=== PATIENT | female | born 1965 | race Caucasian/White ===

== ENCOUNTER 2016-08-20 10:05 | Emergency (ER) | payer OTHER ==
[2016-08-20 10:18] VITALS: BP 123/78
--- NOTE | 2016-08-20 10:30 | UC ---
Skin Complaint HPI - HPI Summary HPI Summary: In grown hair in left eye brow---noticed it was tender and swollen on Sunday-- around eye is swollen and left anterior auricle gland swollen - History of Current Complaint Chief Complaint: UCEye Time Seen by Provider: 08/20/16 10:13 Stated Complaint: EYE ISSUE Hx Obtained From: Patient ?: No Onset/Duration: Sudden Onset, Lasting Days - 2, Still Present Timing: Constant Onset Severity: Mild Pain Intensity: 4 Pain Scale Used: 0-10 Numeric Location: Discrete - left eye brow Character: Raised, Painful Aggravating: Touch Alleviating: Nothing Associated Signs & Symptoms: Positive: Negative - Allergy/Home Medications Allergies/Adverse Reactions: Allergies Allergy/AdvReac Type Severity Reaction Status Date / Time No Known Allergies Allergy Verified 08/20/16 10:18 Home Medications: Home Medications Budesonide/Formote 160/4.5(NF) [Symbicort 160/4.5 (NF)] 1 PO DAILY 08/20/16 [ History] Review of Systems Constitutional: Negative Skin: Negative Eyes: Negative ENT: Negative Respiratory: Negative Cardiovascular: Negative Gastrointestinal: Negative Genitourinary: Negative Motor: Negative Neurovascular: Negative Musculoskeletal: Negative Neurological: Negative Psychological: Negative All Other Systems Reviewed And Are Negative: Yes PMH/Surg Hx/FS Hx/Imm Hx Previously Healthy: No Endocrine History Of: Reports: Thyroid Disease Denies: Diabetes Cardiovascular History Of: Denies: Cardiac Disorders, Hypertension Respiratory History Of: Reports: Asthma Denies: COPD GI/ History Of: Denies: Ulcer - Surgical History Surgical History: Yes Surgery Procedure, Year, and Place: fixed "flap" for acid reflux 1999. 2000 shoulder repair. 2 c-sections - Family History Known Family History: Positive: None Family History: denies cardiovascular issues in family lineage - Social History Occupation: Employed Full-time Lives: With Family Alcohol Use: None Substance Use Type: None Smoking Status (MU): Never Smoked Tobacco Physical Exam Triage Information Reviewed: Yes Appearance: Well-Appearing, No Pain Distress, Well-Nourished Vital Signs: Initial Vital Signs Temp 98.6 F 08/20/16 10:13 Pulse 76 08/20/16 10:13 Resp 16 08/20/16 10:13 BP 123/78 08/20/16 10:13 Pulse Ox 95 08/20/16 10:13 Vital Signs Reviewed: Yes Eye Exam: Normal Eyes: Positive: Conjunctiva Clear ENT Exam: Normal ENT: Positive: Normal ENT inspection, Hearing grossly normal, Pharynx normal, TMs normal. Negative: Nasal congestion, Nasal drainage Dental Exam: Normal Neck exam: Normal Neck: Positive: Supple, Nontender, Enlarged Nodes @ - left anterior auricle Respiratory Exam: Normal Respiratory: Positive: Chest non-tender, Lungs clear, Normal breath sounds, No respiratory distress, No accessory muscle use Cardiovascular Exam: Normal Cardiovascular: Positive: RRR, No Murmur, Pulses Normal, Brisk Capillary Refill Musculoskeletal Exam: Normal Musculoskeletal: Positive: Strength Intact, ROM Intact, No Edema Neurological Exam: Normal Neurological: Positive: Alert, Muscle Tone Normal Psychological Exam: Normal Skin Exam: Other Skin: Positive: Other - dime size firm abscess in left eye brow Course/Dx - Course Course Of Treatment: bactrim, heat, tylenol, ibuprofen do not pick or poke at abscess for with pcp in 3-5 days - Differential Diagnoses - Skin Complaint Differential Diagnoses: Abscess, Cellulitis - Diagnoses Provider Diagnoses: Abscess left eye brow Discharge - Discharge Plan Condition: Stable Disposition: HOME Prescriptions: Sulfamethox/Trimethoprim DS* [Bactrim DS 800/160 TAB*] 1 tab PO BID #20 tab Patient Education Materials: Ibuprofen (By mouth), Abscess (ED), Heat Pack Application (ED) Referrals: Yanni Shahid MD [Primary Care Provider] - 3 Days
== END 2016-08-20 10:38 | disposition home or self-care (01) ==
LOC: UCEAST 10:05
DX: L03.211 Cellulitis of face (principal); E07.9 Disorder of thyroid, unspecified
CPT/HCPCS: 99212; G0463

== ENCOUNTER 2016-08-22 15:36 | Emergency (ER) | payer OTHER ==
[2016-08-22] MEDS ORDERED: Ketorolac INJ* 30 MG/ML 1 ML VIAL IV ONE (17:45)
[2016-08-22] MEDS ORDERED: NS 0.9% 1000 ML* 1,000 ML IV ONE (17:45)
[2016-08-22] MEDS ORDERED: Clindamycin 900 MG IVPREMIX(* 900 MG/50 ML SDV IV ONE (18:00)
--- NOTE | 2016-08-22 18:01 | ED ---
Throat Pain/Nasal Congestion - HPI Summary HPI Summary: Patient presents with left eye pain and swelling that began 5 days ago when she "popped" what she thought was a pimple just below her right eyebrow. The area became swollen and painful so she went to [facility] two days later where she was told she has an abscess and was placed on antibiotics and told to follow-up at the ED if it does not improve for an I&D and IV antibiotics. The area has continued to be swollen and painful, but her mother thinks it has actually improved some. She denies fever, chills, pain with eye movement or NICHOLSON. She does have left sided face pain and mild swelling. She is taking Bactrim and using over the counter medication for pain. - History of Current Complaint Chief Complaint: EDEyeProblem Time Seen by Provider: 08/22/16 17:34 Hx Obtained From: Patient, Family/Equipment Inspector Onset/Duration: Gradual Onset Severity: Moderate Associated Signs And Symptoms: Positive: Negative Cough: None - Allergies/Home Medications Allergies/Adverse Reactions: Allergies Allergy/AdvReac Type Severity Reaction Status Date / Time No Known Allergies Allergy Verified 08/20/16 10:18 PMH/Surg Hx/FS Hx/Imm Hx Endocrine/Hematology History: Reports: Hx Thyroid Disease Denies: Hx Diabetes Cardiovascular History: Denies: Hx Hypertension Respiratory History: Reports: Hx Asthma Denies: Hx Chronic Obstructive Pulmonary Disease (COPD) GI History: Denies: Hx Ulcer - Cancer History Hx Radiation Therapy: No - Surgical History Surgery Procedure, Year, and Place: fixed "flap" for acid reflux 1999. 2000 shoulder repair. 2 c-sections Infectious Disease History: No Infectious Disease History: Denies: Hx Hepatitis, Hx Human Immunodeficiency Virus (HIV), History Other Infectious Disease, Traveled Outside the [place] in Last 30 Days - Family History Known Family History: Positive: None Family History: denies cardiovascular issues in family lineage - Social History Occupation: Employed Full-time Lives: With Family Alcohol Use: None Substance Use Type: Reports: None Smoking Status (MU): Never Smoked Tobacco Review of Systems Negative: Fever, Chills Positive: Erythema - mild circumferentially left eye. Negative: Photophobia, Blurred Vision, Diplopia, Drainage Negative: Sore Throat, Ear Ache Positive: Edema - left eye Negative: Bruising Negative: Headache All Other Systems Reviewed And Are Negative: Yes Physical Exam Triage Information Reviewed: Yes Vital Signs On Initial Exam: Initial Vitals Temp Pulse Resp BP Pulse Ox 97.7 F 76 20 144/82 99 08/22/16 15:38 08/22/16 15:38 08/22/16 15:38 08/22/16 15:38 08/22/16 15:38 Vital Signs Reviewed: Yes Appearance: Positive: Well-Appearing, Well-Nourished, Pain Distress Skin: Positive: Warm, Skin Color Reflects Adequate Perfusion, Dry, Tender, Soft , Erythema @ - mild circumferential to left eye. Area of fluid collection inferior to eye that is not tense. Head/Face: Positive: Normal Head/Face Inspection Eyes: Positive: EOMI, IRIS, Conjunctiva Clear ENT: Positive: Hearing grossly normal, Pharynx normal, TMs normal Neck: Positive: Supple, Tenderness @ - left auricular and submandibular, Enlarged Nodes @ - left auricular and submandibular Respiratory/Lung Sounds: Positive: Clear to Auscultation, Breath Sounds Present Cardiovascular: Positive: RRR Musculoskeletal: Positive: Strength/ROM Intact Neurological: Positive: Sensory/Motor Intact, Alert, Oriented to Person Place, Time, NV Bundle Intact Distally Psychiatric: Positive: Affect/Mood Appropriate AVPU Assessment: Alert - Juanjose Coma Scale Coma Scale Total: 15 Diagnostics - Vital Signs Vital Signs Temp Pulse Resp BP Pulse Ox 08/22/16 15:38 97.7 F 76 20 144/82 99 - Laboratory Result Diagrams: 08/22/16 18:10 08/22/16 18:10 Lab Statement: Any lab studies that have been ordered have been reviewed, and results considered in the medical decision making process. - CT No standard instances CT Interpretation: No Acute Changes CT Interpretation Completed By: Radiologist - 8mm non-specific nodule parotid gland EENT Course/Dx - Differential Diagnoses Differential Diagnoses: Cellulitis, Conjunctivitis, Periorbital/Orbital Cellulitis - Diagnoses Provider Diagnoses: Periorbital cellulitis of left eye Discharge - Discharge Plan Condition: Stable Disposition: HOME Prescriptions: Clindamycin Cap(NF) [Cleocin 300 mg Cap(NF)] 300 mg PO Q6H #28 cap Patient Education Materials: Periorbital Cellulitis in Adults (ED) Referrals: Yanni Shahid MD [Primary Care Provider] - Additional Instructions: Please take the antibiotics prescribed until they are completely gone. Follow- up with your primary care provider in 1-2 days for re-evaluation to insure you are improving. You received Toradol today, which is a high dose NSAID, so begin using ibuprofen 600mg three times daily with meals tomorrow evening for the next 3-5 days to decrease swelling and pain to avoid damage to your kidneys. Return to the emergency department if symptoms worsen.
[2016-08-22 18:21] LABS: Hematocrit 40 % (35-47); Hemoglobin 13.1 g/dl (12.0-16.0); Mean Corpuscular HGB Conc 33 g/dl (31-36); Mean Corpuscular Hemoglobin 28 pg (27-31); Mean Corpuscular Volume 86 fL (80-97); Mean Platelet Volume 7 um3 (7.4-10.4); Red Blood Count 4.62 10^6/ul (4.0-5.4); Red Cell Distribution Width 14 % (10.5-15); White Blood Count 7.1 10^3/ul (3.5-10.8)
[2016-08-22 18:36] LABS: Albumin 4.7 g/dL (3.2-5.2); BUN/Creatinine Ratio 17.5 (8-20); C Reactive Protein 6.14 mg/L (< 5.00); Calcium 9.7 mg/dL (8.6-10.3); EGFR African American 60.9 (>60); EGFR Non-African American 47.4 (>60); Globulin 3.6 g/dL (2-4); Potassium 4.1 mmol/L (3.5-5.0); Total Bilirubin 0.4 mg/dL (0.2-1.0); Total Protein 8.3 g/dL (6.4-8.9)
[2016-08-22] MEDS ORDERED: Iodixanol* (CONTRAST) 320 MG/ML 100 ML SDV IV ONE (18:38)
--- NOTE | 2016-08-22 19:32 | RAD ---
INDICATION: Left orbit and face swelling and pain. COMPARISON: None TECHNIQUE: Contiguous axial sections of the orbits and nasal sinuses were obtained before and after the intravenous injection of 75 mL of Visipaque 320. Images were reconstructed in the coronal and sagittal planes. FINDINGS: There is mild subcutaneous hyperattenuation overlying the left orbit and extending to the upper portion of the maxilla. This same region exhibits mild enhancement and the postcontrast images. There is no drainable fluid collection. Bilaterally the post septal fat of the orbits exhibits normal attenuation. The extraocular muscles appear normal in shape and size. The globes are symmetric and in normal position. The optic nerves are symmetric in size. In the left parotid gland there is an 8 mm nodule exhibiting mild enhancement after contrast administration (image 20 of 27). No fracture is seen. There is mild mucosal thickening of the bilateral maxillary sinuses. The sphenoid sinuses, ethmoid air cells and frontal sinuses are adequately aerated. IMPRESSION: 1. Left-sided superficial soft tissue swelling as described above without CT evidence of post septal orbital cellulitis or drainable fluid collection. 2. The mildly enhancing 8 mm nodule in the left parotid gland is a nonspecific finding with a differential that ranges from benign to malignant etiologies. There is no prior relevant imaging available to comment on chronicity.
[2016-08-22] MEDS ORDERED: Clindamycin CAP* 150 MG PO ONE (19:42)
[2016-08-22 20:16] VITALS: BP 122/68
== END 2016-08-22 20:17 | disposition home or self-care (01) ==
LOC: ED 15:36
DX: L03.213 Periorbital cellulitis (principal); H57.12 Ocular pain, left eye
CPT/HCPCS: 36415; 70488; 80053; 85025; 86140; 96374; 99282; A9270-GY; J1885; Q9967

== ENCOUNTER 2016-10-12 06:00 | Inpatient (IN) | payer OTHER ==
--- NOTE | 2016-10-02 10:55 | HP ---
HISTORY AND PHYSICAL: DATE OF OFFICE VISIT: 10/02/16 DATE OF SURGERY: 10/12/16 SURGEON: Tamar Law MD. (DICTATED BY TRESA NAVARRO) PROCEDURE: Left total knee arthroplasty. CHIEF COMPLAINT: Left knee pain. HISTORY OF PRESENT ILLNESS: Ms. Randhawa is a 51-year-old female with complaints of left knee pain secondary to advanced osteoarthritis. She has failed conservative management and has elected to proceed with a left total knee arthroplasty, which is scheduled for 10/12/[address] Law. PAST MEDICAL HISTORY: Asthma, hypothyroidism, anxiety, depression, and acid reflux. PAST SURGICAL HISTORY: x2, right rotator cuff repair, and an unknown upper GI surgery. CURRENT MEDICATIONS: 1. Citalopram 20 mg once a day. 2. Levothyroxine 112 mcg daily. 3. Ventolin HFA 90 mcg. 4. Symbicort 160/4.5 mcg. 5. Montelukast 10 mg once a day. 6. Cetirizine 10 mg once a day. ALLERGIES: CLINDAMYCIN. FAMILY HISTORY: Family history of stroke, DVT, and heart disease. SOCIAL HISTORY: She is a 51-year-old female. She lives with her . 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 She does not smoke, use drugs or drink alcohol. REVIEW OF SYSTEMS: A complete 14-point review of systems was reviewed with the patient and it was positive for thyroid disease, but negative for anesthesia problems, history of DVT, bleeding disorders, hepatitis C or HIV. PHYSICAL EXAMINATION GENERAL: She is well developed, well nourished, in no acute distress. VITAL SIGNS: She stands 5 feet 5 inches tall, weighs 190 pounds. Her blood pressure is 121/80, her heart rate is 73. HEENT: Normocephalic, atraumatic. NECK: Supple. No palpable lymph nodes. Trachea midline. PULMONARY: Lungs are clear to auscultation bilaterally. CARDIO: Regular rate and rhythm. Strong S1, S2. ABDOMEN: Soft, nontender, nondistended. MUSCULOSKELETAL: Left lower extremity skin is intact. There is open wounds or abrasions. She has [id number] joint effusion. Tenderness over the mediolateral joint line. She has full range of motion of her left knee. Her lower extremities muscle group strengths are intact at 5/5. She has intact sensation and 2+ dorsalis pedis pulses. NEUROLOGIC: She is alert and oriented x3. Cranial nerves II through XII are intact. ASSESSMENT AND PLAN: Ms. Randhawa is a 51-year-old female with complaints of left knee pain secondary to advanced osteoarthritis. She has failed conservative management and has elected to proceed with a left total knee arthroplasty which is scheduled for 10/12/[address] Law discussed the risks and benefits of the surgery at today's visit and all of her questions were answered. Percocet, Colace, and Coumadin were sent to her pharmacy for postoperative DVT prophylaxis and pain control. She will see Dr. Law back in 2 weeks after the surgery. TRESA NAVARRO [id number]/[facility] #: [id number] MTDD
[~2016-10-12 06:00] MED LIST: Famotidine IV* 10 MG/ML 2 ML (20 mg) IV ONE
[2016-10-12] MEDS ORDERED: Buffered Lidocaine 1% SYRIN* 5 ML/SYR SYRINGE ONE (06:07)
[2016-10-12] MEDS ORDERED: Famotidine IV* 10 MG/ML 2 ML (20 mg) ONE (06:07)
[2016-10-12] MEDS ORDERED: ceFAZolin 2 GM PREMIX(*) 2 GM/50 ML BAG IVPB ONE (06:07)
[2016-10-12] MEDS ORDERED: Midazolam* 1 MG/ML 5 ML VIAL (5 MG) ONE (07:33)
[2016-10-12] MEDS ORDERED: Morphine PF AMP (0.5MG/ML)* 5 MG/10 ML AMP ONE (07:35)
[2016-10-12] MEDS ORDERED: fentaNYL* 50 MCG/ML 2 ML VIAL (100 MCG VIAL) ONE (07:55)
[2016-10-12] MEDS ORDERED: KETAMINE HCL* 50 MG/ML 10 ML VIAL ONE (08:09)
[2016-10-12] MEDS ORDERED: Lidocaine 2% PF * 5 ML VIAL ONE (08:48)
[2016-10-12] MEDS ORDERED: Ketorolac INJ* 30 MG/ML 1 ML VIAL ONE (08:48)
[2016-10-12] MEDS ORDERED: EPHEDrine (Pressors)* 50 MG/ML VIAL ONE (08:48)
[2016-10-12] MEDS ORDERED: Ondansetron INJ* 2 MG/ML VIAL ONE (08:48)
[2016-10-12] MEDS ORDERED: Propofol* 10 MG/ML 20 ML BTL IV PUSH ONE ×2 (08:48→09:21)
[2016-10-12] MEDS ORDERED: DiMENhydriNATE IV* 50 MG/ML VIAL IV PUSH PRN ×2 (10:21→10:28)
[2016-10-12] MEDS ORDERED: oxyCODONE TAB* 5 MG TAB PO PRN ×2 (10:21→10:22)
[2016-10-12] MEDS ORDERED: Acetaminophen TAB* 325 MG PO PRN ×2 (10:21→10:22)
[2016-10-12] MEDS ORDERED: Naloxone* 0.4 MG/ML 1 ML VIAL IV PRN (10:22)
[2016-10-12] MEDS ORDERED: Ondansetron INJ* 2 MG/ML VIAL IV PRN (10:22)
[2016-10-12] MEDS ORDERED: Morphine INJ* 4 MG/ML 1 ML SYRINGE IV PRN (10:22)
[2016-10-12] MEDS ORDERED: oxyCODONE/Acetamin 5/325 MG* TAB PO PRN ×2 (10:22)
[2016-10-12] MEDS ORDERED: diPHENhydraMINE IV* 50 MG/ML 1 ml VIAL (BENADRYL) IV PRN (10:22)
[2016-10-12] MEDS ORDERED: Nalbuphine* 20 MG/ML 1 ML VIAL IV PRN (10:22)
--- NOTE | 2016-10-12 11:13 | RAD ---
Indication: Immediate postop exam following LEFT total knee replacement. Comparison: No relevant prior exams available on the [facility] PACS for comparison. Technique: Portable AP and cross table lateral views LEFT knee. Report: Status post total knee replacement. Anterior surgical drain in place. Post-op fluid and gas is seen in the joint space and anterior subcutaneous tissues. Alignment is anatomic. No periprosthetic fracture evident. IMPRESSION: Unremarkable immediate postoperative appearance following LEFT knee replacement.
[2016-10-12] MEDS: Ibuprofen TAB* 600 MG PO SCH ×3 (16:09→23:25)
[2016-10-12] MEDS: ceFAZolin VIAL(*) 1 GM in NS 0.9% 50 ML* 50 ML IVPB SCH ×2 (16:10→23:25)
[2016-10-12] MEDS ORDERED: Warfarin TAB(*) 6 MG PO ONE (17:00)
[2016-10-12] MEDS ORDERED: Levothyroxine TAB* 112 MCG TAB PO SCH (18:00)
[2016-10-12] MEDS ORDERED: Citalopram TAB* 20 MG PO SCH (18:00)
[2016-10-12] MEDS ORDERED: Cetirizine* 10 MG TAB PO SCH (18:00)
[2016-10-12] MEDS: oxyCODONE/Acetamin 5/325 MG* TAB PO PRN ×3 (19:10→23:24)
[2016-10-12] MEDS: Mometasone/Formoter 200/5 MDI INH SCH (21:15)
[2016-10-12] MEDS: Cetirizine* 10 MG TAB PO SCH (21:15)
[2016-10-12] MEDS: Citalopram TAB* 20 MG PO SCH (21:15)
[2016-10-12] MEDS: Montelukast Sodium TAB* 10 MG PO SCH (21:15)
[2016-10-12] MEDS: Docusate CAP* 100 MG PO SCH (21:16)
[2016-10-12] MEDS: Magnesium Hydroxide LIQ* 30 ML UDC PO SCH (21:16)
[2016-10-12] MEDS: Morphine INJ* 4 MG/ML 1 ML SYRINGE IV PRN (23:25)
[2016-10-13] MEDS ORDERED: oxyCODONE TAB* 5 MG TAB PO PRN
[2016-10-13] MEDS ORDERED: diPHENhydraMINE IV* 50 MG/ML 1 ml VIAL (BENADRYL) IV PRN
[2016-10-13] MEDS ORDERED: oxyCODONE/Acetamin 5/325 MG* TAB PO ONE (00:30)
[2016-10-13] MEDS ORDERED: HYDROmorphone* 1 MG/ML 1 ML SYR ONE (00:36)
[2016-10-13] MEDS: oxyCODONE/Acetamin 5/325 MG* TAB PO PRN ×5 (00:39→21:35)
[2016-10-13] MEDS: HYDROmorphone* 1 MG/ML 1 ML SYR IV ONE ×2 (01:00→01:24)
--- NOTE | 2016-10-13 02:38 | OP ---
OPERATIVE NOTE: DATE OF OPERATION: 10/12/16 - inpatient, room #349-02 DATE OF : 65 SURGEON: Tamar Law MD VP MARKETING: TRESA Ochoa Ms. Villegas did help throughout the procedure with preparation of the leg, wound retraction, manipulation of the leg, and wound closure. ANESTHESIOLOGIST: Dr. Wilson. ANESTHESIA: Spinal with adductor nerve block. PRE-OP DIAGNOSIS: Severe degenerative osteoarthritis of the left knee joint. POST-OP DIAGNOSIS: Severe degenerative osteoarthritis of the left knee joint. OPERATIVE PROCEDURE: Left total knee arthroplasty. COMPLICATIONS: None. ESTIMATED BLOOD LOSS: 200 cc. TOURNIQUET TIME: 48 minutes. SPECIMEN: Bone and cartilage from the left knee joint sent to pathology. HARDWARE: This is a [employer] cemented total knee hardware. Two packages of Simplex bone cement. For the femur, a size 4 narrow left Oxinium femoral component. For the tibia, size 3 tibial base plate. Insert is a 15 mm size 3-4 posterior stabilized articular insert. For the patella, a 32 mm 3-peg all poly patella. INDICATIONS: Ms. Randhawa is a 51-year-old female with years of increasingly severe left knee pain. She failed conservative treatment with anti- inflammatories, pain medications, intraarticular injections, physical therapy, and brace wear. She had decreased quality of life and constant pain due to her knee pain. She elected to undergo left total knee arthroplasty. Informed consent was obtained from the patient. She understood the risks of the procedure included, but were not limited to bleeding, infection, damage to nearby structures, continued pain, need for further surgery, intraoperative fracture, nerve palsy, hardware failure or loosening, knee stiffness, loss of motion, stroke, heart attack, blood clot, and . She wished to proceed. Specific to this patient, she understood her young age may lead to early loosening of the implant. She wished to proceed. INTRAOPERATIVE FINDINGS: Intraoperatively, the patient was noted to have severe end-stage arthritis with significant bone loss along the medial tibial plateau, significant loss of cartilage with subchondral sclerosis in the medial and patellofemoral compartment. DESCRIPTION OF PROCEDURE: Ms. Randhawa was identified in the preanesthesia unit. Her left lower extremity was marked as the correct operative side. Informed consent was signed and placed in the chart. The patient was taken to the operating room and placed under spinal anesthesia with an adductor nerve block. A Edwards catheter was placed. The tourniquet was placed on the left thigh. Left lower extremity was prepped and draped in the usual sterile fashion. Preop time-out was made to correctly identify the patient's side and site. Appropriate perioperative antibiotics were given within 1 hour of incision. Tourniquet was inflated and total tourniquet time for this procedure was 48 minutes. A 12 cm midline incision was made with a 10 blade and carried down to the extensor mechanism. A new 10 blade was used to make a standard medial parapatellar arthrotomy. The patella was subluxed laterally. Electrocautery was used to subperiosteally elevate the soft tissue off the superomedial tibia. Osteophytes were carefully removed. The knee was flexed up. The anterior horn of the lateral meniscus and ACL were sharply released. Full thickness loss of cartilage was noted in the patellofemoral and medial compartment. A drill was used to enter the distal femur. Intramedullary distal femoral cutting guide was pinned on the distal femur. Oscillating saw was used to make the distal femur cuts. External rotation guide was placed on the distal femur and the femur was sized to a size 4. Size 4 multi-cutting jig was pinned on the distal femur. Oscillating saw was used to make the appropriate 4 chamfer cuts. PCL was completely released. The tibia was subluxed anteriorly. Extramedullary tibial cutting guide was pinned on the proximal tibia. Oscillating saw was used to make the proximal tibial cut perpendicular to the mechanical axis of the tibia. Tibial bone was carefully removed. The knee was brought out into full extension. There was good medial and lateral ligamentous balancing. The spacer block had good fit. Flexion and extension gaps were well balanced. Lamina spreaders were placed both medially and laterally. Any remaining meniscus was carefully removed with electrocautery. Posterior osteophytes were removed using a curved osteotome. Size 4 narrow left femoral trial was impacted onto the distal femur. This trial had good fit. The box for the posterior stabilized implant was prepared using a reamer and box cut osteotome. Size 3 tibial tray trial and a 9 mm insert trial was placed. The knee was taken through a range of motion. There were some looseness in both flexion and extension. Therefore, a 13 mm insert trial was placed. There was full extension to 130 degrees of flexion. Good medial and lateral stability. The patella was everted. 9 mm of patellar bone and cartilage were carefully removed using an oscillating saw. The patella was sized to a size 32. Three- peg holes were drilled through the size 32 guide. Trial 32 patella was placed and the knee was taken through a range of motion. There was satisfactory patellofemoral tracking. All trials were carefully removed. The tibia was subluxed anteriorly and sized to a size 3. Proximal tibia was prepared using a size 3 keel punch. All bony cut surfaces were copiously irrigated with sterile saline and dried. The final implants were cemented into place, starting with the tibia, followed by the femur, and last the patella. A 15-mm insert trial was placed and the knee was brought out into full extension. The knee was copiously irrigated with sterile saline. Once the cement had fully cured, the insert trial was removed. Any excess cement was carefully removed from around the joints. Electrocautery was used to obtain meticulous hemostasis. The final insert chosen was a 15 mm posterior stabilized articular insert. This was locked into position on the tibial tray without difficulty. Stability of the insert was checked and rechecked and noted to be stable. Final range of motion with full extension to 130 degrees of flexion with good patellofemoral tracking. The knee was copiously irrigated with sterile saline. The extensor mechanism was closed using interrupted #1 Vicryls over a medium Hemovac drain. The rest of the incisions was closed in a layered fashion using 0 and 2-0 Vicryl's. The skin was closed using running 3-0 nylon suture. Sterile Xeroform, 4x4s, and Webril were used to cover the incision. Master wrap and cold pack were placed over this. The patient's anesthesia was reversed without difficulty. She was taken to the PACU in stable condition. Intended weightbearing will be weightbearing as tolerated. Intended DVT prophylaxis will be Coumadin with a Lovenox bridge. [id number]/[facility] #: [id number] ANICETO
[2016-10-13] MEDS: Morphine INJ* 4 MG/ML 1 ML SYRINGE IV PRN ×2 (03:45→09:38)
[2016-10-13] MEDS: Ibuprofen TAB* 600 MG PO SCH ×2 (05:23→09:49)
[2016-10-13] MEDS: Levothyroxine TAB* 112 MCG TAB PO SCH (05:23)
[2016-10-13 06:57] LABS: Hematocrit 33 % (35-47); Hemoglobin 10.9 g/dl (12.0-16.0)
[2016-10-13] MEDS ORDERED: Ondansetron INJ* 2 MG/ML VIAL IV PRN (07:01)
[2016-10-13 07:03] LABS: BUN/Creatinine Ratio 12.4 (8-20); Calcium 8.8 mg/dL (8.6-10.3); EGFR Non-African American 66.9 (>60); Potassium 4.5 mmol/L (3.5-5.0)
[2016-10-13] MEDS: Magnesium Hydroxide LIQ* 30 ML UDC PO SCH ×2 (08:05→21:35)
[2016-10-13] MEDS: Docusate CAP* 100 MG PO SCH ×2 (08:05→21:34)
[2016-10-13] MEDS: Mometasone/Formoter 200/5 MDI INH SCH ×2 (08:05→20:19)
[2016-10-13] MEDS: Vitamin THERAPEUTIC TAB PO SCH (08:05)
[2016-10-13] MEDS: ceFAZolin VIAL(*) 1 GM in NS 0.9% 50 ML* 50 ML IVPB SCH (08:05)
--- NOTE | 2016-10-13 08:13 | PN ---
Progress Note - Progress Note SOAP: Subjective: 51 y/o female s/p L TKA 10/[address] Law. Patient tearful, drain pulled after was caught on bed, non-tender, but concerned about mess made for nursing staff. Pain controlled with pain medication, sitting in chair comfortably, VSS , afebrile. Objective: General- Well appearing, NAD sitting in chair MSK- Drain removed from surgical site, no drainage noted, minimal L LE edema, non-pitting, neg homans b/l, PT 2+ b/l, sensation grossly intact, + PF/ DF b/l Vital Signs Temp 97.8 F 10/13/16 07:10 Pulse 64 10/13/16 07:10 Resp 18 10/13/16 07:36 BP 127/65 10/13/16 07:10 Pulse Ox 99 10/13/16 07:10 Intake & Output 10/12/16 10/13/16 10/13/16 18:59 06:59 18:59 Intake Total 1600 2095 979 Output Total 450 860 Balance 1150 1235 979 Intake: IV Fluids 1600 985 979 LR 1600 985 979 IVPB 50 ABX - CEFAZOLIN 50 Oral 1060 Output: Urine 310 Edwards 450 550 Laboratory Results - last 24 hr 10/13/16 10/13/16 10/13/16 05:37 05:37 05:37 Hgb 10.9 L Hct 33 L INR (Anticoag Therapy) 1.03 Sodium 135 Potassium 4.5 Chloride 103 Carbon Dioxide 31 Anion Gap 1 L BUN 11 Creatinine 0.89 Est GFR ( Amer) 86.0 Est GFR (Non-Af Amer) 66.9 BUN/Creatinine Ratio 12.4 Glucose 112 H Calcium 8.8 Assessment: 51 y/o female s/p L TKA 10/[address] Law. Plan: - DVT prophylaxis- Continue lovenox, coumadin 8mg tonight - Continue PT/ OT - Continue current pain regimen Active Medications Generic Name Dose Route Start Last Admin Trade Name Freq PRN Reason Stop Dose Admin Acetaminophen 650 mg 10/12/16 10:22 Tylenol Tab* PO Q4H PRN TEMP > 100 or PAIN Cetirizine HCl 10 mg 10/12/16 21:00 10/12/16 21:15 Zyrtec* PO 10 mg BEDTIME JADE Administration Protocol Citalopram Hydrobromide 20 mg 10/12/16 21:00 10/12/16 21:15 Celexa Tab* PO 20 mg BEDTIME JADE Administration Diphenhydramine HCl 25 mg 10/13/16 00:00 Benadryl Iv* IV Q6H PRN itching Docusate Sodium 100 mg 10/12/16 21:00 10/13/16 08:05 Colace Cap* PO 100 mg BID JADE Administration Enoxaparin Sodium 40 mg 10/13/16 12:00 Lovenox(*) SUBCUT Q24H JADE Lactated Ringer's 1,000 mls @ 100 mls/hr 10/12/16 11:00 10/13/16 09:40 Lactated Ringers 1000 Ml Bag* IV 100 mls/hr PER RATE JADE Administration Levothyroxine Sodium 112 mcg 10/13/16 06:00 10/13/16 05:23 Synthroid Tab* PO 112 mcg DAILY@0600 JADE Administration Magnesium Hydroxide 30 ml 10/12/16 21:00 10/13/16 08:05 Milk Of Magnesia Liq* PO 30 ml BID JADE Administration Mometasone Furoate/Formoterol Fumar 1 puff 10/12/16 21:00 10/13/16 08:05 Dulera 200/5 Mdi* INH 1 puff BID [facility] Administration Protocol Montelukast Sodium 10 mg 10/12/16 21:00 10/12/16 21:15 Singulair Tab* PO 10 mg BEDTIME JADE Administration Morphine Sulfate 4 mg 10/13/16 00:00 10/13/16 09:38 Morphine Inj (Syringe)* IV 4 mg Q2H PRN Administration PAIN Multivitamins 1 tab 10/13/16 09:00 10/13/16 08:05 Theragran Tab* PO 1 tab DAILY JADE Administration Ondansetron HCl 4 mg 10/13/16 07:01 Zofran Inj* IV Q6H PRN nausea Oxycodone HCl 10 mg 10/13/16 00:00 Roxycodone Tab* PO Q4H PRN PAIN Oxycodone/Acetaminophen 1 tab 10/13/16 00:00 10/13/16 00:39 Percocet 5/325 Tab* PO 1 tab Q4H PRN Administration PAIN Oxycodone/Acetaminophen 2 tab 10/13/16 00:00 10/13/16 07:36 Percocet 5/325 Tab* PO 2 tab Q4H PRN Administration PAIN Pharmacy Profile Note 0 note 10/12/16 17:00 10/12/16 17:37 Coumadin Daily Reminder* FOLLOW UP Not Given 1700 [facility] Warfarin Sodium 8 mg 10/13/16 17:00 Coumadin Tab(*) PO 10/13/16 17:01 ONCE@1700 ONE Protocol
[2016-10-13] MEDS: Enoxaparin(*) 40 MG/0.4 ML SYR SUBCUT SCH (12:12)
[2016-10-13] MEDS ORDERED: Warfarin TAB(*) 4 MG PO ONE (17:00)
[2016-10-13] MEDS: oxyCODONE SR TAB(*) 10 MG TAB.SR PO SCH (21:34)
[2016-10-13] MEDS: Citalopram TAB* 20 MG PO SCH (21:34)
[2016-10-13] MEDS: Montelukast Sodium TAB* 10 MG PO SCH (21:34)
[2016-10-13] MEDS: Cetirizine* 10 MG TAB PO SCH (21:35)
[2016-10-14] MEDS: oxyCODONE/Acetamin 5/325 MG* TAB PO PRN ×4 (01:42→13:55)
[2016-10-14] MEDS: Morphine INJ* 4 MG/ML 1 ML SYRINGE IV PRN (03:51)
[2016-10-14] MEDS: Levothyroxine TAB* 112 MCG TAB PO SCH (06:06)
[2016-10-14 07:22] LABS: Hematocrit 30 % (35-47); Hemoglobin 9.8 g/dl (12.0-16.0); Mean Platelet Volume 7 um3 (7.4-10.4)
--- NOTE | 2016-10-14 07:58 | PN ---
Progress Note - Progress Note SOAP: Subjective: Pt. reports pain with PT. Objective: LLE - dressing changed, inc c/d/i. distally nvi. mod swelling. Vital Signs: Temp Pulse Resp BP Pulse Ox 97.9 F 80 18 113/69 95 10/14/16 03:38 10/14/16 03:38 10/14/16 06:06 10/14/16 03:38 10/14/16 03:38 Laboratory Results - last 24 hr 10/14/16 10/14/16 07:11 07:11 Hgb 9.8 L Hct 30 L Plt Count 186 MPV 7 L INR (Anticoag Therapy) 1.54 H Assessment: 51 yo F pod 2 s/p LTKA Plan: wbat pt/ot give lovenox dose this AM, 4 mg coumadin tonight september d/c to home today following afternoon PT
[2016-10-14] MEDS: Docusate CAP* 100 MG PO SCH (08:49)
[2016-10-14] MEDS: Vitamin THERAPEUTIC TAB PO SCH (08:49)
[2016-10-14] MEDS: Magnesium Hydroxide LIQ* 30 ML UDC PO SCH (08:50)
[2016-10-14] MEDS: oxyCODONE SR TAB(*) 10 MG TAB.SR PO SCH (08:50)
[2016-10-14] MEDS: Mometasone/Formoter 200/5 MDI INH SCH (08:51)
[2016-10-14 11:17] VITALS: BP 103/55
[2016-10-14] MEDS: Enoxaparin(*) 40 MG/0.4 ML SYR SUBCUT SCH (12:42)
[2016-10-14] MEDS ORDERED: Warfarin TAB(*) 4 MG PO ONE (17:00)
== END 2016-10-14 14:40 | disposition home or self-care (01) | DRG 302 ==
LOC: SSU 06:00 → UNDOADMIN 11:29
PROVIDERS: ADMIT Orthopaedic Surgery Adult Reconstructive Orthopaedic Surgery; ATTEND Orthopaedic Surgery Adult Reconstructive Orthopaedic Surgery
PROC: 0SRD0J9 Replacement of Left Knee Joint with Synthetic Substitute, Cemented, Open Approach (ICD-10-PCS; principal; 2016-10-12 07:30)
DX: M17.12 Unilateral primary osteoarthritis, left knee (principal); F32.9 Major depressive disorder, single episode, unspecified; J45.909 Unspecified asthma, uncomplicated; E03.9 Hypothyroidism, unspecified; F41.9 Anxiety disorder, unspecified; K21.9 Gastro-esophageal reflux disease without esophagitis; Z88.8 Allergy status to other drugs, medicaments and biological substances; Z82.49 Family history of ischemic heart disease and other diseases of the circulatory system; Z82.3 Family history of stroke; Z85.038 Personal history of other malignant neoplasm of large intestine; Z82.5 Family history of asthma and other chronic lower respiratory diseases
CPT/HCPCS: 36415; 80048; 85014; 85018; 85049; 85610; 88305; 88311; 94640; A9270-GY; C1776; J0690; J1170; J1650; J1885; J2250; J2270; J2405; J2704; J3010

== ENCOUNTER 2017-10-23 14:47 | Emergency (ER) | payer BC, OTHER ==
[2017-10-23 15:04] VITALS: BP 127/73
--- NOTE | 2017-10-23 15:16 | UC ---
Skin Complaint HPI - HPI Summary HPI Summary: skin around nail for left index finger is tender, red warm and swollen, no streaking full ROM - History of Current Complaint Chief Complaint: UCUpperExtremity Time Seen by Provider: 10/23/17 15:10 Stated Complaint: INFECTED FINGER Hx Obtained From: Patient ?: No Onset/Duration: Sudden Onset, Lasting Weeks - 2 Timing: Constant Pain Intensity: 4 Pain Scale Used: 0-10 Numeric Location: Discrete Character: Swelling, Redness Aggravating Factor(s): Nothing Alleviating Factor(s): Nothing Associated Signs & Symptoms: Positive: Drainage, Tenderness - Allergy/Home Medications Allergies/Adverse Reactions: Allergies Allergy/AdvReac Type Severity Reaction Status Date / Time clindamycin Allergy Severe Rash And Verified 10/23/17 15:24 Itching Review of Systems Constitutional: Negative Skin: Other Eyes: Negative ENT: Negative Respiratory: Negative Cardiovascular: Negative Gastrointestinal: Negative Genitourinary: Negative Motor: Negative Neurovascular: Negative Musculoskeletal: Negative Neurological: Negative Psychological: Negative Is Patient Immunocompromised?: No All Other Systems Reviewed And Are Negative: Yes PMH/Surg Hx/FS Hx/Imm Hx Previously Healthy: No Endocrine History: Hypothyroidism Respiratory History: Asthma Psychological History: Depression - Surgical History Surgical History: Yes Surgery Procedure, Year, and Place: fixed "flap" for acid reflux 1999. 2001 shoulder repair. 2 c-sections. left knee replacement - Family History Known Family History: Positive: None Family History: denies cardiovascular issues in family lineage - Social History Occupation: Employed Full-time Lives: With Family Alcohol Use: None Substance Use Type: None Smoking Status (MU): Never Smoked Tobacco - Immunization History Most Recent Influenza Vaccination: fall 2015 Most Recent Pneumonia Vaccination: never Physical Exam Triage Information Reviewed: Yes Appearance: Well-Appearing, No Pain Distress, Well-Nourished Vital Signs: Initial Vital Signs Temp 98.3 F 10/23/17 14:58 Pulse 72 10/23/17 14:58 Resp 18 10/23/17 14:58 BP 127/73 10/23/17 14:58 Pulse Ox 95 10/23/17 14:58 Vital Signs Reviewed: Yes Eye Exam: Normal Eyes: Positive: Conjunctiva Clear ENT Exam: Normal ENT: Positive: Normal ENT inspection, Hearing grossly normal. Negative: Trismus , Muffled voice, Hoarse voice Dental Exam: Normal Neck exam: Normal Neck: Positive: Supple, Nontender Respiratory Exam: Normal Respiratory: Positive: Chest non-tender, No respiratory distress, No accessory muscle use Cardiovascular Exam: Normal Cardiovascular: Positive: RRR, Pulses Normal, Brisk Capillary Refill Musculoskeletal Exam: Normal Musculoskeletal: Positive: Strength Intact, ROM Intact, No Edema Neurological Exam: Normal Neurological: Positive: Alert, Muscle Tone Normal Psychological Exam: Normal Skin Exam: Other Skin: Positive: Other - infection around left fourth finger nail, swelling erythema tenderness Course/Dx - Course Course Of Treatment: warm soaks , keflex follow with pcp prn - Diagnoses Provider Diagnoses: paronychia left 4th finger nail Discharge - Sign-Out/Discharge Documenting (check all that apply): Discharge/Admit/Transfer - Discharge Plan Condition: Stable Disposition: HOME Prescriptions: Cephalexin CAP* [Keflex CAP*] 500 mg PO QID #28 cap Patient Education Materials: Paronychia (ED), Warm Compress or Soak (ED) Referrals: Yanni Shahid MD [Primary Care Provider] - If Needed - Billing Disposition and Condition Condition: STABLE Disposition: Home
== END 2017-10-23 15:23 | disposition home or self-care (01) ==
LOC: UCEAST 14:47
DX: L03.012 Cellulitis of left finger (principal); E03.9 Hypothyroidism, unspecified; J45.909 Unspecified asthma, uncomplicated; F32.9 Major depressive disorder, single episode, unspecified; Z96.652 Presence of left artificial knee joint; Z88.1 Allergy status to other antibiotic agents
CPT/HCPCS: 99212; G0463

== ENCOUNTER 2018-08-11 18:30 | Emergency (ER) | payer BC ==
--- NOTE | 2018-08-11 18:35 | UC ---
Respiratory Complaint HPI - HPI Summary HPI Summary: 53 yo female presents with ongoing wheezing, productive cough, and SOB for the last 4 weeks. She tells me that about 4 weeks ago these symptoms began. 2 weeks ago she was seen at her PCP's office at [place] and told that it was her asthma flaring up and was instructed to restart her previous asthma medications ( albuterol inhaler, symbicort, singulair) and given a prescription for zpak. She has done this, but has had no change in her symptoms. Over the last 2 days her cough has been more productive. She feels fatigued from coughing. Denies fever, sinus symptoms, chest pain, abdominal pain, n/v. She does not smoke, but her does. - History of Current Complaint Stated Complaint: CONGESTED Time Seen by Provider: 08/11/18 18:34 Hx Obtained From: Patient Onset/Duration: Gradual Onset Timing: Constant Severity Initially: Moderate Severity Currently: Severe Pain Intensity: 8 Pain Scale Used: 0-10 Numeric Character: Cough: Productive - Allergies/Home Medications Allergies/Adverse Reactions: Allergies Allergy/AdvReac Type Severity Reaction Status Date / Time clindamycin Allergy Severe Rash And Verified 08/11/18 18:39 Itching PMH/Surg Hx/FS Hx/Imm Hx Endocrine History: Hypothyroidism Respiratory History: Asthma Psychological History: Anxiety, Depression - Surgical History Surgical History: Yes Surgery Procedure, Year, and Place: fixed "flap" for acid reflux 1999. 2000 shoulder repair. 2 c-sections. left knee replacement - Family History Known Family History: Positive: None Family History: denies cardiovascular issues in family lineage - Social History Occupation: Employed Full-time Lives: With Family Alcohol Use: None Substance Use Type: None Smoking Status (MU): Never Smoked Tobacco - Immunization History Most Recent Influenza Vaccination: fall 2015 Most Recent Pneumonia Vaccination: never Review of Systems All Other Systems Reviewed And Are Negative: Yes Constitutional: Positive: Negative Skin: Positive: Negative Eyes: Positive: Negative ENT: Positive: Negative Respiratory: Positive: Shortness Of Breath, Cough Cardiovascular: Positive: Negative Gastrointestinal: Positive: Negative Neurovascular: Positive: Negative Neurological: Positive: Negative Psychological: Positive: Negative Physical Exam - Summary Physical Exam Summary: GENERAL: NAD. WDWN. No pain distress. SKIN: No rashes, sores, lesions, or open wounds. HEENT: Head: AT/NC Eyes: Conjunctiva clear without inflammation or discharge. Ears: Hearing grossly normal. TMs intact, no bulging, erythema, or edema. Nose: Nasal mucosa pink and moist. NTTP maxillary and frontal sinus. Throat: Posterior oropharynx without exudates, erythema, or tonsillar enlargement. Uvula midline. NECK: Supple. Nontender. No lymphadenopathy. CHEST: Moderate wheezing throughout with decreased breath sounds. No r/r. Audible wheezing from a distance. Difficulty speaking in complete sentences due to increased work of breathing. CV: RRR. Without m/r/g. Pulses intact. Cap refill <2seconds NEURO: Alert. PSYCH: Age appropriate behavior. Triage Information Reviewed: Yes Vital Signs: Vital Signs: Temp Pulse Resp BP Pulse Ox 98.7 F 108 18 142/88 90 08/11/18 18:35 08/11/18 18:35 08/11/18 18:35 08/11/18 18:35 08/11/18 18:35 Vital Signs: Temp Pulse Resp BP Pulse Ox 100.2 F 113 18 128/81 92 08/11/18 20:13 08/11/18 20:13 08/11/18 20:13 08/11/18 20:13 08/11/18 20:13 Vital Signs Reviewed: Yes Respiratory Course/Dx - Course Course Of Treatment: CXR: No radiologist reading after 1800, therefore wet read by myself is negative for PNA. In the clinic she was given 125mg solumedrol IM and a duoneb treatment. She was also placed on 2L NC as her O2% was around 89-90% on RA with increased work of breathing. On 2L her O2% improved to 96% and pt was breathing more comfortably. Her lungs sounds did not improve and are still with moderate diffuse wheezing. She was given a second nebulizer treatment with albuterol alone and taken off 2L NC - pt's O2% dropped to 88-89% on RA. She was placed back on 2L NC. At this point I discussed failure of outpatient treatment and lack of any significant improvement here. I suspect she is having an asthma exacerbation, but is requiring further evaluation and a higher level of care at this time with possible admission to wean off O2. Pt declines ambulance transfer, but her mother (Pat) will drive her to the ED. Strongly advised that if her condition worsens to loin puller and call 911. - Differential Dx/Diagnosis Provider Diagnosis: Asthma exacerbation, SOB (shortness of breath) Discharge - Sign-Out/Discharge Documenting (check all that apply): Patient Departure All imaging exams completed and their final reports reviewed: No - Discharge Plan Condition: Stable Disposition: HOME-RECOMMEND TO ED Referrals: Yanni Shahid MD [Primary Care Provider] - Additional Instructions: Please go to the ER for further evaluation of your shortness of breath and asthma exacerbation - Billing Disposition and Condition Condition: STABLE Disposition: Home-Recommend to ED - Attestation Statements Provider Attestation: I was available for consult. This patient was seen by the [facility]. The patient was not presented to , seen by or examined by in -Aurora Poole MD
[2018-08-11] MEDS ORDERED: Albuterol/Ipratropium NEB.SOL* Albuterol 2.5 MG/Ipratropium 0.5 MG 3 ML INH ONE (18:40)
[2018-08-11] MEDS ORDERED: methylPREDNISolone 125 MG* 2 ML VIAL IM ONE (18:44)
[2018-08-11] MEDS ORDERED: Albuterol 2.5 MG/3 ML NEB.SOL* (0.083%) INH ONE (19:19)
[2018-08-11 20:14] VITALS: BP 128/81
--- NOTE | 2018-08-12 12:49 | UC ---
- Progress Note Progress Note: XR: IMPRESSION: FINDINGS SUGGESTIVE OF COPD, NO EVIDENCE FOR ACUTE FINDING. No change in plan of care Course/Dx - Diagnoses Provider Diagnoses: Asthma exacerbation, SOB (shortness of breath) Discharge - Sign-Out/Discharge Documenting (check all that apply): Post-Discharge Follow Up All imaging exams completed and their final reports reviewed: Yes - Discharge Plan Condition: Stable Disposition: HOME-RECOMMEND TO ED Referrals: Yanni Shahid MD [Primary Care Provider] - Additional Instructions: Please go to the ER for further evaluation of your shortness of breath and asthma exacerbation - Billing Disposition and Condition Condition: STABLE Disposition: Home-Recommend to ED
== END 2018-08-11 20:25 | disposition home health service (06) ==
LOC: UCEAST 18:30
DX: J45.901 Unspecified asthma with (acute) exacerbation (principal); R06.02 Shortness of breath; J45.909 Unspecified asthma, uncomplicated; Z88.1 Allergy status to other antibiotic agents
CPT/HCPCS: 71046; 96372; 99213; A9270-GY; G0463; J2930

== ENCOUNTER 2018-08-11 20:39 | Inpatient (IN) | payer BC ==
[2018-08-11] MEDS ORDERED: Albuterol/Ipratropium NEB.SOL* Albuterol 2.5 MG/Ipratropium 0.5 MG 3 ML INH ONE ×2 (21:09→22:25)
[2018-08-11] MEDS ORDERED: Magnesium Sulfate 2 GM IV* 2 GM/50 ML BAG IVPB ONE (21:09)
[2018-08-11 21:28] LABS: ABS Basophils 0 10^3/ul (0-0.2); ABS Eosinophils 0.1 10^3/ul (0-0.6); ABS Lymphocytes 0.9 10^3/ul (1.0-4.8); ABS Monocytes 0.4 10^3/ul (0-0.8); ABS Neutrophils 14.5 10^3/ul (1.5-7.7); ABS Nucleated RBC 0 10^3/ul; Eosinophil % 0.9 %; Hematocrit 39 % (33-41); Hemoglobin 12.9 g/dL (12.0-16.0); Lymphocyte % 5.4 %; Mean Corpuscular HGB Conc 33 g/dL (31-36); Mean Corpuscular Hemoglobin 29 pg (27-31); Mean Corpuscular Volume 87 fL (80-97); Mean Platelet Volume 7.2 fL (7.4-10.4); Nucleated Red Blood Cells % 0; Platelet Count 323 10^3/uL (150-450); Red Blood Count 4.46 10^6 /uL (3.70-4.87); Red Cell Distribution Width 14 % (10.5-15); White Blood Count 15.9 10^3/uL (3.5-10.8)
[2018-08-11 21:43] LABS: Albumin 4.2 g/dL (3.2-5.2); Albumin/Globulin Ratio 1.1 (1-3); BUN/Creatinine Ratio 13.1 (8-20); C Reactive Protein 93.73 mg/L (<8.01); Calcium 9.3 mg/dL (8.6-10.3); EGFR African American 85.8 (>60); EGFR Non-African American 70.9 (>60); Globulin 3.7 g/dL (2-4); Magnesium 1.8 mg/dL (1.9-2.7); Potassium 3.9 mmol/L (3.5-5.0); Total Bilirubin 0.4 mg/dL (0.2-1.0); Total Protein 7.9 g/dL (6.4-8.9)
[2018-08-11] MEDS ORDERED: ED Azithromycn 500 mg/250 ml 500 MG/250 ML PREMIX.SET IVPB ONE (22:24)
--- NOTE | 2018-08-11 22:27 | ED ---
Respiratory - HPI Summary HPI Summary: 53-year-old female presents with shortness of breath for the past couple days. States that her symptoms are gradually getting worse. She states that she was told to restart her asthma medication two weeks ago on Symbicort and inhaler. She states the past couple week she's had increasing shortness breath. She seen in urgent care earlier and was given 2 breathing treatments and steroid with minimal relief. She is 88 on room air. No chest pain. She admits to productive cough. No fevers. No sore throat. No bowel pain. No nausea vomiting. She is nonsmoker. Denies any pain or swelling in calf muscles. chest xray done at urgent care. - History of Current Complaint Chief Complaint: EDShortnessOfBreath Stated Complaint: OXYGEN LEVEL IS LOW, SENT FROM [facility] PER PT Time Seen by Provider: 08/11/18 20:58 Pain Intensity: 0 Sputum Amount: None - Allergy/Home Medications Allergies/Adverse Reactions: Allergies Allergy/AdvReac Type Severity Reaction Status Date / Time clindamycin Allergy Severe Rash And Verified 08/11/18 18:39 Itching Home Medications: Home Medications Albuterol HFA INHALER* [Ventolin HFA Inhaler*] 2 puff INH Q4H PRN 08/11/18 [ History Confirmed 08/11/18] Cetirizine* [ZyrTEC 10 MG TAB*] 10 mg PO DAILY 08/11/18 [History Confirmed 08/11] PMH/Surg Hx/FS Hx/Imm Hx Endocrine/Hematology History: Reports: Hx Thyroid Disease - hypo, Hx Anemia - in past, took iron briefly Denies: Hx Diabetes Cardiovascular History: Denies: Hx Hypertension Respiratory History: Reports: Hx Asthma Denies: Hx Chronic Obstructive Pulmonary Disease (COPD) GI History: Reports: Hx Gastroesophageal Reflux Disease - not on meds, Hx Hiatal Hernia - kathy fundoplication repair Denies: Hx Ulcer Musculoskeletal History: Reports: Hx Arthritis - bilateral knees osteoarthritis , Other Musculoskeletal History - right shoulder repaired Sensory History: Reports: Hx Contacts or Glasses - glasses Opthamlomology History: Reports: Hx Contacts or Glasses - glasses Neurological History: Reports: Hx Migraine - has no med Psychiatric History: Reports: Hx Anxiety - on med, Hx Depression - on med, Hx Suicide Attempt - 2007 - Cancer History Hx Radiation Therapy: No - Surgical History Surgery Procedure, Year, and Place: fixed "flap" for acid reflux 1999. 2000 shoulder repair. 2 c-sections. left knee replacement Hx Anesthesia Reactions: No Infectious Disease History: No Infectious Disease History: Denies: Hx Hepatitis, Hx Human Immunodeficiency Virus (HIV), History Other Infectious Disease, Traveled Outside the [place] in Last 30 Days - Family History Known Family History: Positive: None Family History: denies cardiovascular issues in family lineage - Social History Alcohol Use: None Substance Use Type: Reports: None Hx Tobacco Use: No Smoking Status (MU): Never Smoked Tobacco Review of Systems Negative: Fever Negative: Chest Pain Positive: Shortness Of Breath, Cough All Other Systems Reviewed And Are Negative: Yes Physical Exam Triage Information Reviewed: Yes Vital Signs On Initial Exam: Initial Vitals Pulse BP Pulse Ox 99 147/88 86 08/11/18 20:46 08/11/18 20:46 08/11/18 20:46 Vital Signs Reviewed: Yes Appearance: Positive: Well-Appearing Skin: Positive: Warm, Dry Head/Face: Positive: Normal Head/Face Inspection Eyes: Positive: Normal, EOMI, IRIS, Conjunctiva Clear ENT: Positive: Normal ENT inspection, Pharynx normal, TMs normal Respiratory/Lung Sounds: Positive: Breath Sounds Present, Wheezes Cardiovascular: Positive: Normal, RRR Abdomen Description: Positive: Nontender, Soft Bowel Sounds: Positive: Present Musculoskeletal: Positive: Normal Neurological: Positive: Normal Psychiatric: Positive: Normal Diagnostics - Vital Signs Vital Signs Temp Pulse Resp BP Pulse Ox 08/11/18 21:27 95 16 92 08/11/18 21:00 103 18 92 08/11/18 20:49 99.7 F 101 18 147/88 82 08/11/18 20:48 103 90 08/11/18 20:46 99 147/88 86 - Laboratory Lab Results: Lab Results 08/11/18 08/11/18 08/11/18 Range/Units 21:20 21:20 21:20 WBC 15.9 H (3.5-10.8) 10^3/uL RBC 4.46 (3.70-4.87) 10^6 /uL Hgb 12.9 (12.0-16.0) g/dL Hct 39 (33-41) % MCV 87 (80-97) fL MCH 29 (27-31) pg MCHC 33 (31-36) g/dL RDW 14 (10.5-15) % Plt Count 323 (150-450) 10^3/uL MPV 7.2 L (7.4-10.4) fL Neut % (Auto) 91.0 % Lymph % (Auto) 5.4 % Kinney % (Auto) 2.6 % Eos % (Auto) 0.9 % Baso % (Auto) 0.1 % Absolute Neuts (auto) 14.5 H (1.5-7.7) 10^3/ul Absolute Lymphs (auto) 0.9 L (1.0-4.8) 10^3/ul Absolute Monos (auto) 0.4 (0-0.8) 10^3/ul Absolute Eos (auto) 0.1 (0-0.6) 10^3/ul Absolute Basos (auto) 0 (0-0.2) 10^3/ul Absolute Nucleated RBC 0 10^3/ul Nucleated RBC % 0 D-Dimer, Quantitative < 200 (Less Than 230) ng/mL Sodium 137 (135-145) mmol/L Potassium 3.9 (3.5-5.0) mmol/L Chloride 100 L (101-111) mmol/L Carbon Dioxide 27 (22-32) mmol/L Anion Gap 10 (2-11) mmol/L BUN 11 (6-24) mg/dL Creatinine 0.84 (0.51-0.95) mg/dL Est GFR ( Amer) 85.8 (>60) Est GFR (Non-Af Amer) 70.9 (>60) BUN/Creatinine Ratio 13.1 (8-20) Glucose 159 H (70-100) mg/dL Lactic Acid (0.5-2.0) mmol/L Calcium 9.3 (8.6-10.3) mg/dL Magnesium 1.8 L (1.9-2.7) mg/dL Total Bilirubin 0.40 (0.2-1.0) mg/dL AST 17 (13-39) U/L ALT 13 (7-52) U/L Alkaline Phosphatase 107 H (34-104) U/L Troponin I 0.00 (<0.04) ng/mL C-Reactive Protein 93.73 H (<8.01) mg/L B-Natriuretic Peptide (<=100) pg/mL Total Protein 7.9 (6.4-8.9) g/dL Albumin 4.2 (3.2-5.2) g/dL Globulin 3.7 (2-4) g/dL Albumin/Globulin Ratio 1.1 (1-3) 08/11/18 08/11/18 Range/Units 21:20 21:20 WBC (3.5-10.8) 10^3/uL RBC (3.70-4.87) 10^6 /uL Hgb (12.0-16.0) g/dL Hct (33-41) % MCV (80-97) fL MCH (27-31) pg MCHC (31-36) g/dL RDW (10.5-15) % Plt Count (150-450) 10^3/uL MPV (7.4-10.4) fL Neut % (Auto) % Lymph % (Auto) % Kinney % (Auto) % Eos % (Auto) % Baso % (Auto) % Absolute Neuts (auto) (1.5-7.7) 10^3/ul Absolute Lymphs (auto) (1.0-4.8) 10^3/ul Absolute Monos (auto) (0-0.8) 10^3/ul Absolute Eos (auto) (0-0.6) 10^3/ul Absolute Basos (auto) (0-0.2) 10^3/ul Absolute Nucleated RBC 10^3/ul Nucleated RBC % D-Dimer, Quantitative (Less Than 230) ng/mL Sodium (135-145) mmol/L Potassium (3.5-5.0) mmol/L Chloride (101-111) mmol/L Carbon Dioxide (22-32) mmol/L Anion Gap (2-11) mmol/L BUN (6-24) mg/dL Creatinine (0.51-0.95) mg/dL Est GFR ( Amer) (>60) Est GFR (Non-Af Amer) (>60) BUN/Creatinine Ratio (8-20) Glucose (70-100) mg/dL Lactic Acid 1.0 (0.5-2.0) mmol/L Calcium (8.6-10.3) mg/dL Magnesium (1.9-2.7) mg/dL Total Bilirubin (0.2-1.0) mg/dL AST (13-39) U/L ALT (7-52) U/L Alkaline Phosphatase (34-104) U/L Troponin I (<0.04) ng/mL C-Reactive Protein (<8.01) mg/L B-Natriuretic Peptide 12 (<=100) pg/mL Total Protein (6.4-8.9) g/dL Albumin (3.2-5.2) g/dL Globulin (2-4) g/dL Albumin/Globulin Ratio (1-3) Result Diagrams: 08/11/18 21:20 08/11/18 21:20 Lab Statement: Any lab studies that have been ordered have been reviewed, and results considered in the medical decision making process. - EKG No standard instances Cardiac Rate: NL EKG Rhythm: Sinus Rhythm Summary of EKG Findings: sinus rhythm Re-Evaluation - Re-Evaluation First Eval Re-Evaluation Time: 22:29 Change: Unchanged Comment: lungs still wheezing Disposition - Course Course Of Treatment: 53-year-old female presents with shortness of breath for the past couple days. States that her symptoms are gradually getting worse. She states that she was told to restart her asthma medication two weeks ago on Symbicort and inhaler. She states the past couple week she's had increasing shortness breath. She seen in urgent care earlier and was given 2 breathing treatments and steroid with minimal relief. She is 88 on room air. No chest pain. She admits to productive cough. No fevers. No sore throat. No bowel pain. No nausea vomiting. She is nonsmoker. Denies any pain or swelling in calf muscles. chest xray done at urgent care. on exam is stat at 92 on 2 liters. diffuse wheezing noted. gave two more duoneb and magnesium and no improvement. will give azithromycin as wbc and crp are elevated. bnp normal. ekg sinus rhythm. d-dimer normal. troponin zero. discussed case with dr banerjee who agrees to admit. - Differential Dx - Cardiopulmonary Differential Diagnoses - Cardiopulmonary: Asthma, Bronchitis, Influenza, Lower Resp Infection - Diagnoses Provider Diagnoses: Asthma exacerbation Discharge - Sign-Out/Discharge Documenting (check all that apply): Patient Departure - Discharge Plan Condition: Stable Disposition: ADMITTED TO [facility] Referrals: Yanni Shahid MD [Primary Care Provider] - - Billing Disposition and Condition Condition: STABLE Disposition: Admitted to [facility]
[2018-08-11] MEDS ORDERED: Albuterol HFA INHALER* 8 gm MDI INH PRN (22:49)
[2018-08-11] MEDS ORDERED: methylPREDNISolone 125 MG* 2 ML VIAL IV SCH (23:00)
--- NOTE | 2018-08-11 23:06 | ADMNOTE ---
Subjective Date of Service: 08/11/18 Interval History: HISTORY AND PHYSICAL PCP: [facility] CC: dyspnea HPI: Patient is 53 year old woman with asthma for at least 10 year, which tends to be seasonal. She reports wheezing and dyspnea for 2 weeks. She initially went to primary care office, was restarted on her inhalers, but has felt no better. She was not given any oral steroids or antibiotics. She has a constant mildly productive cough and dyspnea w/ exertion. She went to urgent care today, was referred to ER due to hypoxia. Family History: Findings - Father alive w/ [place]/stroke and DVT, brother and mother well, son w/ asthma Social History: Findings - , 2 children, works in school kitchen, non- smoker, no alcohol or drug use Past Medical History: Findings - asthma, hypothyroid *(untreated) anxiety, GERD ; PSH: LT knee arthroplasty, X2, RT rotator cuff repair Review of Systems - Measurements Intake and Output: Intake and Output Last 24 Hours 08/09/18 08/10/18 08/11/18 08/12/18 06:59 06:59 06:59 06:59 Weight 81.647 kg - Review of Systems Constitutional Symptoms: Negative: Fever Dermatology: Positive: Normal HEENT: Positive: Normal Eyes: Positive: Normal Thyroid: Positive: Primary Hypothyroidism, Weight Gain Pulmonary: Positive: Cough, Sputum, Wheezing, Shortness of Breath, Asthma Negative: Home Oxygen Cardiology: Positive: Shortness of Breath Negative: Chest Pain Gastroenterology: Positive: Normal Genital - Urinary: Positive: Normal Genitourinay - Female: Negative: Vaginal Discharge Musculoskeletal: Negative: Joint Pain Endocrinology: Positive: Normal Hematologic/Lymphatic: Negative: Anemia Neurology: Positive: Normal Psychiatry: Positive: Depressed Mood Allergic/Immunologic: Positive: Hx Environmental, Hx Seasonal, Athsma Objective Active Medications: Home Medications: Albuterol (Ventolin 2.5 Mg/3 Ml Neb.Diamond*) 2.5 mg INH [id number] AWAKE PRN PRN Reason: SOB/WHEEZING Albuterol (Ventolin Hfa Inhaler*) 2 puff INH Q4H PRN PRN Reason: SOB/WHEEZING Budesonide/Formoterol Fumarate (Symbicort 160/4.5 (Nf)) puff INH BID JADE; Protocol Cetirizine HCl (Zyrtec*) 10 mg PO DAILY JADE; Protocol Montelukast Sodium (Singulair Tab*) 10 mg PO DAILY JADE Vital Signs - 8 hr 08/11/18 08/11/18 08/11/18 20:46 20:48 20:49 Temperature 37.6 C Pulse Rate 99 103 101 Respiratory 18 Rate Blood Pressure 147/88 147/88 (mmHg) O2 Sat by Pulse 86 90 82 Oximetry 08/11/18 08/11/18 08/11/18 21:00 21:27 22:35 Temperature Pulse Rate 103 95 86 Respiratory 18 16 12 Rate Blood Pressure (mmHg) O2 Sat by Pulse 92 92 92 Oximetry Oxygen Devices in Use Now: Nasal Cannula Appearance: alert, no distress Eyes: No Scleral Icterus Ears/Nose/Mouth/Throat: NL Teeth, Lips, Gums Neck: NL Appearance and Movements; NL JVP Respiratory: Symmetrical Chest Expansion and Respiratory Effort Cardiovascular: NL Sounds; No Murmurs; No JVD Abdominal: NL Sounds; No Tenderness; No Distention Lymphatic: No Cervical Adenopathy, No Inguinal Adenopathy Extremities: No Edema Skin: No Rash or Ulcers Neurological: Alert and Oriented x 3 Lines/Tubes/Other Access: Clean, Dry and Intact Peripheral IV Nutrition: Taking PO's Result Diagrams: 08/12/18 05:01 08/12/18 05:01 Additional Lab and Data: Laboratory Tests 08/11/18 08/11/18 08/11/18 21:20 21:20 21:20 D-Dimer, Quantitative < 200 Lactic Acid 1.0 Calcium 9.3 Magnesium 1.8 L Alkaline Phosphatase 107 H C-Reactive Protein 93.73 H B-Natriuretic Peptide Total Protein 7.9 Influenza A (Rapid) Influenza B (Rapid) 08/11/18 08/12/18 21:20 00:40 D-Dimer, Quantitative Lactic Acid Calcium Magnesium Alkaline Phosphatase C-Reactive Protein B-Natriuretic Peptide 12 Total Protein Influenza A (Rapid) Negative Influenza B (Rapid) Negative Diagnostic Imaging: CXR:negative EKG Data: NSR, normal axis, T-wave flattening V3-V6 Assess/Plan/Problems-Billing Assessment: 53 year old woman w/ asthma exacerbation - Patient Problems (1) Asthma exacerbation Current Visit: Yes Status: Acute Priority: High Code(s): J45.901 - UNSPECIFIED ASTHMA WITH (ACUTE) EXACERBATION SNOMED Code(s): 776475123 Comment: -Patient requires hospitalization for supplemental oxygen, IV steroids. -Continue albuterol nebulizer and outpatient ICS/LABA. -Will treat w/ azithromycin for possible bacterial bronchitis. (2) Hypothyroid Current Visit: Yes Status: Acute Priority: Medium Code(s): E03.9 - HYPOTHYROIDISM, UNSPECIFIED SNOMED Code(s): 52212748 Comment: -Unclear why untreated, will check TSH -Appears depressed, may be due to low thyroid (3) DVT prophylaxis Current Visit: Yes Status: Acute Priority: Low Code(s): CUJ7814 - SNOMED Code(s): 195273522 Comment: -moderate risk, will use SC heparin Status and Disposition: observation
[2018-08-12 00:52] LABS: Influenza A Molecular NEGATIVE (Negative); Influenza B Molecular NEGATIVE (Negative)
[2018-08-12] MEDS: Calcium Carbonate CHEW TAB* 500 MG (TUMS) PO PRN (05:33)
[2018-08-12] MEDS: Heparin VIAL(*) 5000 UNITS/ML VIAL (FIVE THOUSAND) SUBCUT SCH ×3 (05:33→23:59)
[2018-08-12] MEDS: GuaiFENesin DM* 5 ML UDC PO PRN ×2 (05:34→17:20)
[2018-08-12 05:42] LABS: ABS Basophils 0 10^3/ul (0-0.2); ABS Eosinophils 0 10^3/ul (0-0.6); ABS Lymphocytes 0.8 10^3/ul (1.0-4.8); ABS Monocytes 0.1 10^3/ul (0-0.8); ABS Neutrophils 10.7 10^3/ul (1.5-7.7); ABS Nucleated RBC 0 10^3/ul; Eosinophil % 0 %; Hematocrit 41 % (33-41); Hemoglobin 13.1 g/dL (12.0-16.0); Lymphocyte % 7.2 %; Mean Corpuscular HGB Conc 32 g/dL (31-36); Mean Corpuscular Hemoglobin 28 pg (27-31); Mean Corpuscular Volume 88 fL (80-97); Mean Platelet Volume 7.3 fL (7.4-10.4); Nucleated Red Blood Cells % 0.1; Platelet Count 349 10^3/uL (150-450); Red Blood Count 4.62 10^6 /uL (3.70-4.87); Red Cell Distribution Width 14 % (10.5-15); White Blood Count 11.6 10^3/uL (3.5-10.8)
[2018-08-12 06:00] LABS: BUN/Creatinine Ratio 13.3 (8-20); Calcium 9.4 mg/dL (8.6-10.3); EGFR African American 79.3 (>60); EGFR Non-African American 65.5 (>60); Magnesium 2.5 mg/dL (1.9-2.7); Potassium 3.9 mmol/L (3.5-5.0)
[2018-08-12 06:15] LABS: TSH (Thyroid Stimulating Horm) 4.9 mcIU/mL (0.34-5.60)
[2018-08-12] MEDS ORDERED: Pneumococcal *Vac Polyvalent 0.5 ML VIAL IM ONE (09:00)
[2018-08-12] MEDS: Mometasone/Formoter 200/5 MDI INH SCH ×2 (09:05→21:04)
[2018-08-12] MEDS: Cetirizine* 10 MG TAB PO SCH (09:23)
[2018-08-12] MEDS: methylPREDNISolone 125 MG* 2 ML VIAL IV SCH ×3 (09:23→23:55)
[2018-08-12] MEDS: Montelukast Sodium TAB* 10 MG PO SCH (09:24)
[2018-08-12] MEDS ORDERED: Magnesium Hydroxide LIQ* 30 ML UDC ONE (12:16)
[2018-08-12] MEDS ORDERED: Ondansetron INJ* 2 MG/ML VIAL ONE (12:16)
--- NOTE | 2018-08-12 13:58 | PN ---
Subjective Date of Service: 08/12/18 Interval History: Patient seen and examined. Remains on O2, denies SOB or chest pain, states she has an unproductive cough. Denies fever or chills. After patient was seen, RN states patient is nauseous/vomiting. Family History: Findings - Father alive w/ [place]/stroke and DVT, brother and mother well, son w/ asthma Social History: Findings - , 2 children, works in school kitchen, non- smoker, no alcohol or drug use Past Medical History: Findings - asthma, hypothyroid *(untreated) anxiety, GERD ; PSH: LT knee arthroplasty, X2, RT rotator cuff repair Objective Active Medications: Albuterol (Ventolin 2.5 Mg/3 Ml Neb.Diamond*) 2.5 mg INH [id number] AWAKE PRN PRN Reason: SOB/WHEEZING Albuterol (Ventolin Hfa Inhaler*) 2 puff INH Q4H PRN PRN Reason: SOB/WHEEZING Calcium Carbonate (Tums*) 500 mg PO Q4H PRN PRN Reason: HEARTBURN Last Admin: 08/12/18 05:33 Dose: 500 mg Cetirizine HCl (Zyrtec*) 10 mg PO DAILY JADE; Protocol Last Admin: 08/12/18 09:23 Dose: 10 mg Guaifenesin/Dextromethorphan (Robitussin Dm*) 10 ml PO Q4H PRN PRN Reason: COUGH Last Admin: 08/12/18 05:34 Dose: 10 ml Heparin Sodium (Porcine) (Heparin Vial(*)) 5,000 units SUBCUT Q8HR JADE Last Admin: 08/12/18 05:33 Dose: 5,000 units Azithromycin 250 mg/ Sodium (Chloride) 250 mls @ 250 mls/hr IVPB Q24H JADE Magnesium Hydroxide (Milk Of Magnesia Liq*) 30 ml PO Q6H PRN PRN Reason: CONSTIPATION Methylprednisolone Sodium Succinate (Solu-Medrol 125mg *) 60 mg IV 0000,0800, 1600 JADE Last Admin: 08/12/18 09:23 Dose: 60 mg Mometasone Furoate/Formoterol Fumar (Dulera 200/5 Mdi*) 1 puff INH BID JADE; Protocol Last Admin: 08/12/18 09:05 Dose: 1 puff Montelukast Sodium (Singulair Tab*) 10 mg PO DAILY JADE Last Admin: 08/12/18 09:24 Dose: 10 mg Ondansetron HCl (Zofran Inj*) 4 mg IV Q4H PRN PRN Reason: NAUSEA/VOMITING Vital Signs - 8 hr 08/12/18 08/12/18 08/12/18 07:27 08:00 09:10 Temperature 97.7 F Pulse Rate 66 95 Respiratory 18 18 18 Rate Blood Pressure 115/74 (mmHg) O2 Sat by Pulse 93 99 99 Oximetry 08/12/18 12:35 Temperature 98.0 F Pulse Rate 83 Respiratory 18 Rate Blood Pressure 123/77 (mmHg) O2 Sat by Pulse 92 Oximetry Oxygen Devices in Use Now: Nasal Cannula Appearance: alert, NAD Eyes: No Scleral Icterus, PERRLA Ears/Nose/Mouth/Throat: NL Teeth, Lips, Gums, Mucous Membranes Moist Neck: NL Appearance and Movements; NL JVP, Trachea Midline Respiratory: Symmetrical Chest Expansion and Respiratory Effort, - - exp wheeze right, left clear Cardiovascular: NL Sounds; No Murmurs; No JVD, RRR, No Edema Abdominal: NL Sounds; No Tenderness; No Distention, No Hepatosplenomegaly Extremities: No Edema, No Clubbing, Cyanosis Skin: No Rash or Ulcers Neurological: Alert and Oriented x 3 Nutrition: Taking PO's Result Diagrams: 08/12/18 05:01 08/12/18 05:01 Additional Lab and Data: Laboratory Tests 08/11/18 08/11/18 08/11/18 21:20 21:20 21:20 D-Dimer, Quantitative < 200 Lactic Acid 1.0 Calcium 9.3 Magnesium 1.8 L Alkaline Phosphatase 107 H C-Reactive Protein 93.73 H B-Natriuretic Peptide Total Protein 7.9 Influenza A (Rapid) Influenza B (Rapid) 08/11/18 08/12/18 21:20 00:40 D-Dimer, Quantitative Lactic Acid Calcium Magnesium Alkaline Phosphatase C-Reactive Protein B-Natriuretic Peptide 12 Total Protein Influenza A (Rapid) Negative Influenza B (Rapid) Negative Microbiology and Other Data: Microbiology 08/12/18 00:15 Influenza Types A,B Antigen - Final Nasal Specimen received for Influenza A/B Molecular testing Diagnostic Imaging: CXR:negative EKG Data: NSR, normal axis, T-wave flattening V3-V6 Assess/Plan/Problems-Billing Assessment: 53 year old woman with history of asthma, presents with exacerbation and acute hypoxia. - Patient Problems (1) Asthma exacerbation Code(s): J45.901 - UNSPECIFIED ASTHMA WITH (ACUTE) EXACERBATION SNOMED Code(s) : 472414263 Comment: - Continue IV steroids with taper - Continue albuterol nebulizer and home ICS/LABA - Continue azithromycin daily for 5 days (2) Nausea & vomiting Code(s): R11.2 - NAUSEA WITH VOMITING, UNSPECIFIED SNOMED Code(s): 29700638 Comment: - Zofran PRN (3) Hypothyroid Code(s): E03.9 - HYPOTHYROIDISM, UNSPECIFIED SNOMED Code(s): 60644599 Comment: - TSH WNL, continue to monitor (4) DVT prophylaxis Code(s): [id number] - SNOMED Code(s): 863037037 Comment: - HSQ Status and Disposition: observation, anticipate DC home in 1-2 days
[2018-08-12] MEDS: Ondansetron INJ* 2 MG/ML VIAL IV PRN ×2 (15:09→20:48)
[2018-08-12] MEDS: Azithromycin IV(*) 250 MG in NS 0.9% 250 ML* 250 ML IVPB SCH (21:05)
[2018-08-12] MEDS: Metoclopramide IV* 5 MG/ML 2 ML VIAL IV PRN (23:51)
[2018-08-13] MEDS: Ondansetron INJ* 2 MG/ML VIAL IV PRN (01:42)
[2018-08-13] MEDS: Heparin VIAL(*) 5000 UNITS/ML VIAL (FIVE THOUSAND) SUBCUT SCH ×3 (06:28→22:04)
[2018-08-13] MEDS: Metoclopramide IV* 5 MG/ML 2 ML VIAL IV PRN (06:28)
[2018-08-13] MEDS: Mometasone/Formoter 200/5 MDI INH SCH ×2 (07:31→19:52)
[2018-08-13] MEDS: Montelukast Sodium TAB* 10 MG PO SCH (07:31)
[2018-08-13] MEDS: Cetirizine* 10 MG TAB PO SCH (07:31)
[2018-08-13] MEDS: Magnesium Hydroxide LIQ* 30 ML UDC PO PRN ×2 (07:31→22:06)
[2018-08-13] MEDS: methylPREDNISolone 125 MG* 2 ML VIAL IV SCH ×2 (07:32→16:27)
--- NOTE | 2018-08-13 16:20 | PN ---
Subjective Date of Service: 08/13/18 Interval History: Patient seen and examined. Was nauseous most of the night with vomiting. Not able to tolerate PO, but can take clears. States zofran is helping. Denies fevers or chills. States no diarrhea. 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 Past Medical History: Findings - asthma, hypothyroid *(untreated) anxiety, GERD ; PSH: LT knee arthroplasty, X2, RT rotator cuff repair Objective Active Medications: Albuterol (Ventolin 2.5 Mg/3 Ml Neb.Diamond*) 2.5 mg INH [id number] AWAKE PRN PRN Reason: SOB/WHEEZING Albuterol (Ventolin Hfa Inhaler*) 2 puff INH Q4H PRN PRN Reason: SOB/WHEEZING Calcium Carbonate (Tums*) 500 mg PO Q4H PRN PRN Reason: HEARTBURN Last Admin: 08/12/18 05:33 Dose: 500 mg Cetirizine HCl (Zyrtec*) 10 mg PO DAILY JADE; Protocol Last Admin: 08/13/18 07:31 Dose: 10 mg Guaifenesin/Dextromethorphan (Robitussin Dm*) 10 ml PO Q4H PRN PRN Reason: COUGH Last Admin: 08/12/18 17:20 Dose: 10 ml Heparin Sodium (Porcine) (Heparin Vial(*)) 5,000 units SUBCUT Q8HR JADE Last Admin: 08/13/18 14:21 Dose: 5,000 units Azithromycin 250 mg/ Sodium (Chloride) 250 mls @ 250 mls/hr IVPB Q24H JADE Last Admin: 08/12/18 21:05 Dose: 250 mls/hr Magnesium Hydroxide (Milk Of Magnesia Liq*) 30 ml PO Q6H PRN PRN Reason: CONSTIPATION Last Admin: 08/13/18 07:31 Dose: 30 ml Methylprednisolone Sodium Succinate (Solu-Medrol 125mg *) 60 mg IV 0000,0800, 1600 [facility] Last Admin: 08/13/18 07:32 Dose: 60 mg Metoclopramide HCl (Reglan Iv*) 10 mg IV Q6H PRN PRN Reason: NAUSEA/VOMITING Last Admin: 08/13/18 06:28 Dose: 10 mg Mometasone Furoate/Formoterol Fumar (Dulera 200/5 Mdi*) 1 puff INH BID [facility]; Protocol Last Admin: 08/13/18 07:31 Dose: 1 puff Montelukast Sodium (Singulair Tab*) 10 mg PO DAILY [facility] Last Admin: 08/13/18 07:31 Dose: 10 mg Ondansetron HCl (Zofran Inj*) 4 mg IV Q4H PRN PRN Reason: NAUSEA/VOMITING Last Admin: 08/13/18 01:42 Dose: 4 mg Vital Signs - 8 hr 08/13/18 08/13/18 11:21 16:00 Temperature 97.3 F Pulse Rate 67 Respiratory 18 Rate Blood Pressure 143/68 (mmHg) O2 Sat by Pulse 94 94 Oximetry Oxygen Devices in Use Now: Nasal Cannula Appearance: alert, tired, NAD Eyes: No Scleral Icterus, PERRLA Ears/Nose/Mouth/Throat: NL Teeth, Lips, Gums, Mucous Membranes Moist Neck: NL Appearance and Movements; NL JVP, Trachea Midline Respiratory: Symmetrical Chest Expansion and Respiratory Effort, Clear to Auscultation Cardiovascular: NL Sounds; No Murmurs; No JVD, RRR Abdominal: NL Sounds; No Tenderness; No Distention, No Hepatosplenomegaly Extremities: No Edema, No Clubbing, Cyanosis Skin: No Rash or Ulcers, No Nodules or Sclerosis Neurological: Alert and Oriented x 3, NL Gait Nutrition: - - tolerating clears and sips only Result Diagrams: 08/12/18 05:01 08/12/18 05:01 Additional Lab and Data: Laboratory Tests 08/11/18 08/11/18 08/11/18 21:20 21:20 21:20 D-Dimer, Quantitative < 200 Lactic Acid 1.0 Calcium 9.3 Magnesium 1.8 L Alkaline Phosphatase 107 H C-Reactive Protein 93.73 H B-Natriuretic Peptide Total Protein 7.9 Influenza A (Rapid) Influenza B (Rapid) 08/11/18 08/12/18 21:20 00:40 D-Dimer, Quantitative Lactic Acid Calcium Magnesium Alkaline Phosphatase C-Reactive Protein B-Natriuretic Peptide 12 Total Protein Influenza A (Rapid) Negative Influenza B (Rapid) Negative Microbiology and Other Data: Microbiology 08/12/18 00:15 Influenza Types A,B Antigen - Final Nasal Specimen received for Influenza A/B Molecular testing Diagnostic Imaging: CXR:negative EKG Data: NSR, normal axis, T-wave flattening V3-V6 Assess/Plan/Problems-Billing Assessment: This is a 53 year old woman with history of asthma, presents with exacerbation and acute hypoxia. - Patient Problems (1) Asthma exacerbation Code(s): J45.901 - UNSPECIFIED ASTHMA WITH (ACUTE) EXACERBATION SNOMED Code(s) : 261725300 Comment: - Continue IV steroids, decrease to 40mg Q8 next 24 hours. Transition to oral prednisone at DC - Continue albuterol nebulizer and home ICS/LABA - Continue azithromycin daily for 5 days (2) Nausea & vomiting Code(s): R11.2 - NAUSEA WITH VOMITING, UNSPECIFIED SNOMED Code(s): 21625484 Comment: - Viral gastroenteritis in the differential; does not seem related to current respiratory issues - Zofran PRN, clears, NS at maintenance until patient can tolerate advanced diet (3) Hypothyroid Code(s): E03.9 - HYPOTHYROIDISM, UNSPECIFIED SNOMED Code(s): 73850814 Comment: - TSH WNL, continue to monitor (4) DVT prophylaxis Code(s): [id number] - SNOMED Code(s): 312315832 Comment: - HSQ Status and Disposition: Observation, anticipate DC home in 1-2 days
[2018-08-13] MEDS: NS 0.9% 1000 ML** 1,000 ML IV SCH (16:44)
[2018-08-13] MEDS: Azithromycin IV(*) 250 MG in NS 0.9% 250 ML* 250 ML IVPB SCH (22:00)
[2018-08-13] MEDS: methylPREDNISolone SOD 40 MG* 1 ML VIAL IV SCH (22:03)
[2018-08-14] MEDS: methylPREDNISolone SOD 40 MG* 1 ML VIAL IV SCH ×3 (05:52→21:20)
[2018-08-14] MEDS: Heparin VIAL(*) 5000 UNITS/ML VIAL (FIVE THOUSAND) SUBCUT SCH ×3 (05:53→21:21)
[2018-08-14] MEDS: NS 0.9% 1000 ML** 1,000 ML IV SCH (07:18)
[2018-08-14] MEDS: Cetirizine* 10 MG TAB PO SCH (09:22)
[2018-08-14] MEDS: Montelukast Sodium TAB* 10 MG PO SCH (09:23)
[2018-08-14] MEDS: Mometasone/Formoter 200/5 MDI INH SCH ×2 (09:23→20:11)
[2018-08-14] MEDS ORDERED: Magnesium Sulfate 1 GM IV* 1 GM/100 ML BAG IV ONE (14:50)
[2018-08-14] MEDS: Albuterol/Ipratropium NEB.SOL* Albuterol 2.5 MG/Ipratropium 0.5 MG 3 ML INH SCH ×2 (15:06→20:14)
--- NOTE | 2018-08-14 16:18 | PN ---
Subjective Date of Service: 08/14/18 Interval History: Patient seen and examined. Discussed room air sat's that remain low. Patient states nausea and vomiting resolved, she has an unproductive cough, does not feel acutely SOB but can get winded with ambulation. Denies fever or chills, no further complaints. 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 Past Medical History: Findings - asthma, hypothyroid *(untreated) anxiety, GERD ; PSH: LT knee arthroplasty, X2, RT rotator cuff repair Objective Active Medications: Albuterol (Ventolin 2.5 Mg/3 Ml Neb.Diamond*) 2.5 mg INH [id number] AWAKE PRN PRN Reason: SOB/WHEEZING Albuterol (Ventolin Hfa Inhaler*) 2 puff INH Q4H PRN PRN Reason: SOB/WHEEZING Albuterol/Ipratropium (Duoneb (Albuterol 2.5 Mg/Ipratropium 0.5 Mg)) 1 neb INH Q4H JADE Last Admin: 08/14/18 15:06 Dose: 1 neb Calcium Carbonate (Tums*) 500 mg PO Q4H PRN PRN Reason: HEARTBURN Last Admin: 08/12/18 05:33 Dose: 500 mg Cetirizine HCl (Zyrtec*) 10 mg PO DAILY JADE; Protocol Last Admin: 08/14/18 09:22 Dose: 10 mg Guaifenesin/Dextromethorphan (Robitussin Dm*) 10 ml PO Q4H PRN PRN Reason: COUGH Last Admin: 08/12/18 17:20 Dose: 10 ml Heparin Sodium (Porcine) (Heparin Vial(*)) 5,000 units SUBCUT Q8HR JADE Last Admin: 08/14/18 14:50 Dose: 5,000 units Azithromycin 250 mg/ Sodium (Chloride) 250 mls @ 250 mls/hr IVPB Q24H JADE Last Admin: 08/13/18 22:00 Dose: 250 mls/hr Magnesium Hydroxide (Milk Of Magnesia Liq*) 30 ml PO Q6H PRN PRN Reason: CONSTIPATION Last Admin: 08/13/18 22:06 Dose: 30 ml Methylprednisolone Sodium Succinate (Solu-Medrol 40 Mg) 40 mg IV Q8H [facility] Last Admin: 08/14/18 13:28 Dose: 40 mg Metoclopramide HCl (Reglan Iv*) 10 mg IV Q6H PRN PRN Reason: NAUSEA/VOMITING Last Admin: 08/13/18 06:28 Dose: 10 mg Mometasone Furoate/Formoterol Fumar (Dulera 200/5 Mdi*) 1 puff INH BID [facility]; Protocol Last Admin: 08/14/18 09:23 Dose: 1 puff Montelukast Sodium (Singulair Tab*) 10 mg PO DAILY [facility] Last Admin: 08/14/18 09:23 Dose: 10 mg Ondansetron HCl (Zofran Inj*) 4 mg IV Q4H PRN PRN Reason: NAUSEA/VOMITING Last Admin: 08/13/18 01:42 Dose: 4 mg Vital Signs - 8 hr 08/14/18 08/14/18 08/14/18 10:23 10:24 11:36 Temperature 98.2 F Pulse Rate 57 Respiratory 16 Rate Blood Pressure 130/65 (mmHg) O2 Sat by Pulse 84 92 Oximetry 08/14/18 08/14/18 08/14/18 11:56 15:10 15:36 Temperature 98.4 F Pulse Rate 61 62 Respiratory 16 Rate Blood Pressure 122/68 (mmHg) O2 Sat by Pulse 92 8 93 Oximetry Oxygen Devices in Use Now: Nasal Cannula Appearance: alert, NAD Eyes: No Scleral Icterus, PERRLA Ears/Nose/Mouth/Throat: NL Teeth, Lips, Gums, Mucous Membranes Moist Neck: NL Appearance and Movements; NL JVP, Trachea Midline Respiratory: Symmetrical Chest Expansion and Respiratory Effort, - - RUL with wheezes and poor air entry, HERRERA clear with diminished base Cardiovascular: NL Sounds; No Murmurs; No JVD Abdominal: NL Sounds; No Tenderness; No Distention, No Hepatosplenomegaly Extremities: No Edema, No Clubbing, Cyanosis Skin: No Rash or Ulcers Neurological: Alert and Oriented x 3 Nutrition: Taking PO's Result Diagrams: 08/12/18 05:01 08/12/18 05:01 Additional Lab and Data: Laboratory Tests 08/11/18 08/11/18 08/11/18 21:20 21:20 21:20 D-Dimer, Quantitative < 200 Lactic Acid 1.0 Calcium 9.3 Magnesium 1.8 L Alkaline Phosphatase 107 H C-Reactive Protein 93.73 H B-Natriuretic Peptide Total Protein 7.9 Influenza A (Rapid) Influenza B (Rapid) 08/11/18 08/12/18 21:20 00:40 D-Dimer, Quantitative Lactic Acid Calcium Magnesium Alkaline Phosphatase C-Reactive Protein B-Natriuretic Peptide 12 Total Protein Influenza A (Rapid) Negative Influenza B (Rapid) Negative Microbiology and Other Data: Microbiology 08/12/18 00:15 Influenza Types A,B Antigen - Final Nasal Specimen received for Influenza A/B Molecular testing Diagnostic Imaging: CXR:negative EKG Data: NSR, normal axis, T-wave flattening V3-V6 Assess/Plan/Problems-Billing Assessment: This is a 53 year old woman with history of asthma, presents with exacerbation and acute hypoxia. - Patient Problems (1) Asthma exacerbation Code(s): J45.901 - UNSPECIFIED ASTHMA WITH (ACUTE) EXACERBATION SNOMED Code(s) : 251920189 Comment: - Give 1 gram magnesium now - Continue IV steroids, at 40mg Q8 and transition to oral prednisone at DC - Add duoneb Q4hx 3 doses - Continue home ICS/LABA - Continue azithromycin daily for 5 days (2) Nausea & vomiting Code(s): R11.2 - NAUSEA WITH VOMITING, UNSPECIFIED SNOMED Code(s): 60762818 Comment: - Resolved, likely viral gastroenteritis; does not seem related to current respiratory issues - IVF discontinued, tolerating PO diet without issue (3) Hypothyroid Code(s): E03.9 - HYPOTHYROIDISM, UNSPECIFIED SNOMED Code(s): 10585729 Comment: - TSH WNL, continue to monitor (4) DVT prophylaxis Code(s): [id number] - SNOMED Code(s): 080430756 Comment: - HSQ Status and Disposition: Inpatient, patient is persistently hypoxic at rest. Will re-evaluate tomorrow.
[2018-08-14] MEDS: Azithromycin IV(*) 250 MG in NS 0.9% 250 ML* 250 ML IVPB SCH (21:17)
[2018-08-15] MEDS: Ondansetron INJ* 2 MG/ML VIAL IV PRN (02:28)
[2018-08-15] MEDS: methylPREDNISolone SOD 40 MG* 1 ML VIAL IV SCH ×3 (05:26→21:09)
[2018-08-15] MEDS: Heparin VIAL(*) 5000 UNITS/ML VIAL (FIVE THOUSAND) SUBCUT SCH ×3 (05:26→21:23)
[2018-08-15] MEDS: Cetirizine* 10 MG TAB PO SCH (07:13)
[2018-08-15] MEDS: Montelukast Sodium TAB* 10 MG PO SCH (07:13)
[2018-08-15] MEDS: Mometasone/Formoter 200/5 MDI INH SCH ×2 (09:20→20:21)
[2018-08-15] MEDS: Albuterol 2.5 MG/3 ML NEB.SOL* (0.083%) INH PRN (11:59)
--- NOTE | 2018-08-15 14:43 | CONS ---
PULMONARY CONSULTATION REPORT: DATE OF CONSULT: 08/15/18 CONSULTATION REQUESTED BY: Farzana Landin NP REASON FOR CONSULT: Evaluation of shortness of breath, hypoxemia. HISTORY OF PRESENT ILLNESS: The patient is a 53-year-old female with history of asthma diagnosed 10 years ago, hypothyroidism, anxiety, GERD, seasonal allergies. The patient reports that she has longstanding history of allergies. Ten years back, her allergies have been acting out and she also had trouble breathing and was diagnosed with asthma at that time. She was initiated on Singulair and maintenance inhaler. Her asthma has improved and her allergies have been better controlled and she came off of her inhaler and Singulair in October of this past year. The patient has not had any issues with her asthma or trouble breathing up until last month. She had flu in June at which time she had trouble breathing as well. She did not get any medical attention around that time. Symptoms subsequently improved and she was feeling back to her baseline. The patient reports having some exposures in April in the workplace with strong chemicals which affected her breathing; however, that resolved quickly. She had dental issues and had infected tooth pulled out couple of weeks ago. She started having trouble breathing, cough with mostly dry and with cream colored phlegm at times over the past 2 weeks and symptoms have gradually worsened. She at that point started also using Singulair and her inhaler without much improvement in her symptoms. Her symptoms have worsened, was seen by primary care physician, was not given any antibiotics or steroids at that point. She presented to the urgent care, was found to be hypoxemic, and was referred to the ED for further evaluation. The patient was diagnosed with acute asthma exacerbation and was admitted. The patient currently requiring O2 at 1.5 L. The patient reports having tightness with breathing. She still continues to have moist cough, not bringing out much phlegm. The patient reports having discomfort taking deep breath. The patient denies fevers or chills recently. The patient denies sinus issues or runny nose. The patient denies chest pain, palpitations, dizziness. The patient is nonsmoker; however, reports secondhand smoke exposure. PAST MEDICAL HISTORY: 1. Asthma. 2. Hypothyroidism, not being treated. 3. Anxiety. 4. GERD. 5. Hiatal hernia. PAST SURGICAL HISTORY: Left knee arthroplasty, x2, right rotator cuff repair. ALLERGIES: CLINDAMYCIN. FAMILY HISTORY: Father alive with NH, stroke, and DVT. Brother and mother well. Son with asthma. SOCIAL HISTORY: , lives at home with her significant other. She works in a school kitchen. No alcohol or drug abuse. REVIEW OF SYSTEMS: All 14-systems reviewed and as per HPI. PHYSICAL EXAM: The patient in bed, in no apparent distress, coughing intermittently. Vital Signs: Temperature 98.2, pulse 66 beats per minute, respiratory rate 16, O2 sat 95% on 1 L, blood pressure 142/70. HEENT: Pupils equal and reactive to light. Mucous membranes dry. Lungs: Diminished air entry bilaterally. Significant wheeze on auscultation. Cardiovascular: S1, S2 present. Abdomen: Soft, nontender, nondistended. Bowel sounds present. Extremities: Normal range of motion. Neurologic: Alert, awake, oriented x3. No focal deficits. Skin: No rash or bruises. DIAGNOSTIC STUDIES/LAB DATA: WBC count 15.9 on admission, decreased to 11.6; hemoglobin 13.1; hematocrit 41; platelet count 349 with left shift. D-dimer less than 200. Sodium 138, potassium 3.9, chloride 102, bicarb 29, BUN 12, creatinine 0.9, glucose awaited. TSH within normal limits. Alk phos slightly elevated at 107. AST and ALT within normal limits. CRP is significantly elevated at 93. Influenza A and B negative. Chest x-ray done in urgent care was personally reviewed by me, evidence of hyperinflation with prominence of interstitial markings at the bases bilaterally. IMPRESSION AND RECOMMENDATIONS: 53-year-old female with history of asthma, longstanding history of allergies, recent influenza with improvement in symptoms subsequently with worsening shortness of breath, hypoxemia. Symptoms consistent with acute asthma exacerbation likely secondary to viral bronchitis. The patient is still very wheezy and tight on auscultation. Hypoxemia likely related to the significant bronchospasm. She is currently requiring O2 at 1 L per minute. Given normal D-dimer, I do not suspect alternative etiology of hypoxemia or shortness of breath like pulmonary embolism. She does not appear to be in heart failure. Would continue with current dose of steroids. Would not taper yet. The patient were educated on pathophysiology of asthma and acute asthma exacerbation. The patient having trouble in expectoration of the phlegm. She would benefit from Flutter device which was ordered. Technique of Flutter usage was discussed. Will reassess the patient tomorrow. If hypoxemia does not resolve after bronchospasm improves, then would obtain CT scan of the chest. Chest x-ray to my reading appears to not only show hyperinflation, but also shows prominence of interstitium at the bases. Thank you for allowing me to participate in the care of your patient. Will follow up with you. [id number]/CPS #: [id number] ANICETO
--- NOTE | 2018-08-15 16:55 | PN ---
Subjective Date of Service: 08/15/18 Interval History: Patient seen and examined. Discussed consultation with Dr. Victor, patient agreeable to outpatient follow up with her after discharge. Patient complains of SOB with exertion and unproductive cough. Remains oxygen dependent. Family History: Findings - Father alive w/ [place]/stroke and DVT, brother and mother well, son w/ asthma Social History: Findings - , 2 children, works in school kitchen, non- smoker, no alcohol or drug use Past Medical History: Findings - asthma, hypothyroid *(untreated) anxiety, GERD ; PSH: LT knee arthroplasty, X2, RT rotator cuff repair Objective Active Medications: Albuterol (Ventolin 2.5 Mg/3 Ml Neb.Diamond*) 2.5 mg INH [id number] AWAKE PRN PRN Reason: SOB/WHEEZING Last Admin: 08/15/18 11:59 Dose: 2.5 mg Albuterol (Ventolin Hfa Inhaler*) 2 puff INH Q4H PRN PRN Reason: SOB/WHEEZING Albuterol/Ipratropium (Duoneb (Albuterol 2.5 Mg/Ipratropium 0.5 Mg)) 1 neb INH Q4H JADE Calcium Carbonate (Tums*) 500 mg PO Q4H PRN PRN Reason: HEARTBURN Last Admin: 08/12/18 05:33 Dose: 500 mg Cetirizine HCl (Zyrtec*) 10 mg PO DAILY [facility]; Protocol Last Admin: 08/15/18 07:13 Dose: 10 mg Guaifenesin/Dextromethorphan (Robitussin Dm*) 10 ml PO Q4H PRN PRN Reason: COUGH Last Admin: 08/12/18 17:20 Dose: 10 ml Heparin Sodium (Porcine) (Heparin Vial(*)) 5,000 units SUBCUT Q8HR JADE Last Admin: 08/15/18 13:09 Dose: 5,000 units Azithromycin 250 mg/ Sodium (Chloride) 250 mls @ 250 mls/hr IVPB Q24H JAED Last Admin: 08/14/18 21:17 Dose: 250 mls/hr Magnesium Hydroxide (Milk Of Magnesia Liq*) 30 ml PO Q6H PRN PRN Reason: CONSTIPATION Last Admin: 08/13/18 22:06 Dose: 30 ml Methylprednisolone Sodium Succinate (Solu-Medrol 40 Mg) 40 mg IV Q8H [facility] Last Admin: 08/15/18 13:09 Dose: 40 mg Metoclopramide HCl (Reglan Iv*) 10 mg IV Q6H PRN PRN Reason: NAUSEA/VOMITING Last Admin: 08/13/18 06:28 Dose: 10 mg Mometasone Furoate/Formoterol Fumar (Dulera 200/5 Mdi*) 1 puff INH BID [facility]; Protocol Last Admin: 08/15/18 09:20 Dose: 1 puff Montelukast Sodium (Singulair Tab*) 10 mg PO DAILY [facility] Last Admin: 08/15/18 07:13 Dose: 10 mg Ondansetron HCl (Zofran Inj*) 4 mg IV Q4H PRN PRN Reason: NAUSEA/VOMITING Last Admin: 08/15/18 02:28 Dose: 4 mg Vital Signs - 8 hr 08/15/18 11:15 Temperature 97.3 F Pulse Rate 59 Respiratory 16 Rate Blood Pressure 130/70 (mmHg) O2 Sat by Pulse 96 Oximetry Oxygen Devices in Use Now: Nasal Cannula Appearance: alert, NAD Eyes: No Scleral Icterus, PERRLA Ears/Nose/Mouth/Throat: NL Teeth, Lips, Gums, Mucous Membranes Moist Neck: NL Appearance and Movements; NL JVP, Trachea Midline Respiratory: Symmetrical Chest Expansion and Respiratory Effort, - - right lung with poor air entry, left improved, bilateral wheeze/squeek on expiration Abdominal: NL Sounds; No Tenderness; No Distention, No Hepatosplenomegaly Extremities: No Edema, No Clubbing, Cyanosis Skin: No Rash or Ulcers Neurological: Alert and Oriented x 3, NL Gait Nutrition: Taking PO's Result Diagrams: 08/12/18 05:01 08/12/18 05:01 Additional Lab and Data: Laboratory Tests 08/11/18 08/11/18 08/11/18 21:20 21:20 21:20 D-Dimer, Quantitative < 200 Lactic Acid 1.0 Calcium 9.3 Magnesium 1.8 L Alkaline Phosphatase 107 H C-Reactive Protein 93.73 H B-Natriuretic Peptide Total Protein 7.9 Influenza A (Rapid) Influenza B (Rapid) 08/11/18 08/12/18 21:20 00:40 D-Dimer, Quantitative Lactic Acid Calcium Magnesium Alkaline Phosphatase C-Reactive Protein B-Natriuretic Peptide 12 Total Protein Influenza A (Rapid) Negative Influenza B (Rapid) Negative Microbiology and Other Data: Microbiology 08/12/18 00:15 Influenza Types A,B Antigen - Final Nasal Specimen received for Influenza A/B Molecular testing Diagnostic Imaging: CXR:negative EKG Data: NSR, normal axis, T-wave flattening V3-V6 Assess/Plan/Problems-Billing Assessment: This is a 53 year old woman with history of asthma, presents with exacerbation and acute hypoxia. - Patient Problems (1) Asthma exacerbation Code(s): J45.901 - UNSPECIFIED ASTHMA WITH (ACUTE) EXACERBATION SNOMED Code(s) : 739201938 Comment: - Continues with no appreciable improvement, given GI symptoms, it is likely this is viral in nature - Patient felt better with duonebs, will continue - Consult with Dr. Victor appreciated, continue steroids at current dose, flutter valve added; if no improvement tomorrow, recommends CT Chest - Continue home ICS/LABA - Continue azithromycin daily, last dose Sunday (2) Nausea & vomiting Code(s): R11.2 - NAUSEA WITH VOMITING, UNSPECIFIED SNOMED Code(s): 93038833 Comment: - Resolved, likely viral gastroenteritis; does not seem related to current respiratory issues - IVF discontinued, tolerating PO diet without issue (3) Hypothyroid Code(s): E03.9 - HYPOTHYROIDISM, UNSPECIFIED SNOMED Code(s): 70517328 Comment: - TSH WNL, continue to monitor (4) DVT prophylaxis Code(s): HKJ3734 - SNOMED Code(s): 693202292 Comment: - HSQ Status and Disposition: Inpatient. Anticipate DC to home when medically stable.
[2018-08-15] MEDS ORDERED: Albuterol/Ipratropium NEB.SOL* Albuterol 2.5 MG/Ipratropium 0.5 MG 3 ML INH SCH (17:00)
[2018-08-15] MEDS: Albuterol/Ipratropium NEB.SOL* Albuterol 2.5 MG/Ipratropium 0.5 MG 3 ML INH SCH ×2 (20:23→23:19)
[2018-08-15] MEDS: Azithromycin IV(*) 250 MG in NS 0.9% 250 ML* 250 ML IVPB SCH (21:19)
[2018-08-16] MEDS: Albuterol/Ipratropium NEB.SOL* Albuterol 2.5 MG/Ipratropium 0.5 MG 3 ML INH SCH ×3 (03:12→19:09)
[2018-08-16] MEDS: methylPREDNISolone SOD 40 MG* 1 ML VIAL IV SCH ×2 (05:31→13:24)
[2018-08-16] MEDS: Heparin VIAL(*) 5000 UNITS/ML VIAL (FIVE THOUSAND) SUBCUT SCH ×3 (05:37→21:53)
[2018-08-16] MEDS: Mometasone/Formoter 200/5 MDI INH SCH ×2 (08:28→19:09)
[2018-08-16] MEDS: Cetirizine* 10 MG TAB PO SCH (10:50)
[2018-08-16] MEDS: Montelukast Sodium TAB* 10 MG PO SCH (10:51)
[2018-08-16] MEDS ORDERED: Albuterol/Ipratropium NEB.SOL* Albuterol 2.5 MG/Ipratropium 0.5 MG 3 ML INH SCH (13:00)
[2018-08-16] MEDS: Albuterol 2.5 MG/3 ML NEB.SOL* (0.083%) INH PRN (13:24)
[2018-08-16] MEDS: Ondansetron INJ* 2 MG/ML VIAL IV PRN (15:19)
--- NOTE | 2018-08-16 17:08 | PN ---
Progress Note - Progress Note Date of Service: 08/16/18 - Pulm f/u note Note: Pt seen and examined at bedside. Pt reports feeling better. Cough and wheezing are improved. Active Medications Generic Name Dose Route Start Last Admin Trade Name Freq PRN Reason Stop Dose Admin Albuterol 2.5 mg 08/11/18 22:50 08/16/18 13:24 Ventolin 2.5 Mg/3 Ml Neb.Diamond* INH 2.5 mg [id number] AWAKE PRN Administration SOB/WHEEZING Albuterol 2 puff 08/11/18 22:49 Ventolin Hfa Inhaler* INH Q4H PRN SOB/WHEEZING Albuterol/Ipratropium 1 neb 08/16/18 19:00 Duoneb (Albuterol 2.5 Mg/Ipratropium 0.5 Mg) INH [id number] AWAKE JADE Calcium Carbonate 500 mg 08/12/18 05:24 08/12/18 05:33 Tums* PO 500 mg Q4H PRN Administration HEARTBURN Cetirizine HCl 10 mg 08/12/18 09:00 08/16/18 10:50 Zyrtec* PO 10 mg DAILY JADE Administration Protocol Guaifenesin/Dextromethorphan 10 ml 08/12/18 05:24 08/12/18 17:20 Robitussin Dm* PO 10 ml Q4H PRN Administration COUGH Heparin Sodium (Porcine) 5,000 units 08/12/18 06:00 08/16/18 13:25 Heparin Vial(*) SUBCUT 5,000 units Q8HR JADE Administration Azithromycin 250 mg/ Sodium 250 mls @ 250 mls/hr 08/12/18 21:00 08/15/18 21: 19 Chloride IVPB 250 mls/hr Q24H JADE Administration Magnesium Hydroxide 30 ml 08/12/18 12:39 08/13/18 22:06 Milk Of Magnesia Liq* PO 30 ml Q6H PRN Administration CONSTIPATION Methylprednisolone Sodium Succinate 40 mg 08/13/18 21:00 08/16/18 13:24 Solu-Medrol 40 Mg IV 40 mg Q8H JADE Administration Metoclopramide HCl 10 mg 08/12/18 22:13 08/13/18 06:28 Reglan Iv* IV 10 mg Q6H PRN Administration NAUSEA/VOMITING Mometasone Furoate/Formoterol Fumar 1 puff 08/12/18 09:00 08/16/18 08:28 Dulera 200/5 Mdi* INH 1 puff BID JADE Administration Protocol Montelukast Sodium 10 mg 08/12/18 09:00 08/16/18 10:51 Singulair Tab* PO 10 mg DAILY JADE Administration Ondansetron HCl 4 mg 08/12/18 12:39 08/16/18 15:19 Zofran Inj* IV 4 mg Q4H PRN Administration NAUSEA/VOMITING Vital Signs Temp Pulse Resp BP Pulse Ox 97.9 F 75 16 126/70 93 08/16/18 11:07 08/16/18 11:07 08/16/18 11:07 08/16/18 11:07 08/16/18 16:00 Labs: No new labs O/E; Pt in NAD HEENT: PERRLA, no JVD Lungs: Diminished air entry b/l, wheeze +, improved CVS; S1, S+, regular Abd: Soft, BS+ Ext: Normal ROM Neuro: No focal deficits Skin: No rash I/R: 53 year old woman with history of asthma, presents with exacerbation and acute hypoxia sec to bronchospasm Pt with clinical improvement, saturating well on RA c/w bronchodilators Will start with prednisone taper To complete course of abx Discussed fdc management of asthma
--- NOTE | 2018-08-16 17:16 | PN ---
Subjective Date of Service: 08/16/18 Interval History: Pt's breathing is improving slowly. 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 Past Medical History: Findings - asthma, hypothyroid *(untreated) anxiety, GERD ; PSH: LT knee arthroplasty, X2, RT rotator cuff repair Objective Active Medications: Albuterol (Ventolin 2.5 Mg/3 Ml Neb.Diamond*) 2.5 mg INH [id number] AWAKE PRN PRN Reason: SOB/WHEEZING Last Admin: 08/16/18 13:24 Dose: 2.5 mg Albuterol (Ventolin Hfa Inhaler*) 2 puff INH Q4H PRN PRN Reason: SOB/WHEEZING Albuterol/Ipratropium (Duoneb (Albuterol 2.5 Mg/Ipratropium 0.5 Mg)) 1 neb INH [id number] AWAKE [facility] Calcium Carbonate (Tums*) 500 mg PO Q4H PRN PRN Reason: HEARTBURN Last Admin: 08/12/18 05:33 Dose: 500 mg Cetirizine HCl (Zyrtec*) 10 mg PO DAILY [facility]; Protocol Last Admin: 08/16/18 10:50 Dose: 10 mg Guaifenesin/Dextromethorphan (Robitussin Dm*) 10 ml PO Q4H PRN PRN Reason: COUGH Last Admin: 08/12/18 17:20 Dose: 10 ml Heparin Sodium (Porcine) (Heparin Vial(*)) 5,000 units SUBCUT Q8HR JADE Last Admin: 08/16/18 13:25 Dose: 5,000 units Azithromycin 250 mg/ Sodium (Chloride) 250 mls @ 250 mls/hr IVPB Q24H JADE Last Admin: 08/15/18 21:19 Dose: 250 mls/hr Magnesium Hydroxide (Milk Of Magnesia Liq*) 30 ml PO Q6H PRN PRN Reason: CONSTIPATION Last Admin: 08/13/18 22:06 Dose: 30 ml Methylprednisolone Sodium Succinate (Solu-Medrol 40 Mg) 40 mg IV Q8H JADE Last Admin: 08/16/18 13:24 Dose: 40 mg Metoclopramide HCl (Reglan Iv*) 10 mg IV Q6H PRN PRN Reason: NAUSEA/VOMITING Last Admin: 08/13/18 06:28 Dose: 10 mg Mometasone Furoate/Formoterol Fumar (Dulera 200/5 Mdi*) 1 puff INH BID [facility] [place]; Protocol Last Admin: 08/16/18 08:28 Dose: 1 puff Montelukast Sodium (Singulair Tab*) 10 mg PO DAILY [facility] Last Admin: 08/16/18 10:51 Dose: 10 mg Ondansetron HCl (Zofran Inj*) 4 mg IV Q4H PRN PRN Reason: NAUSEA/VOMITING Last Admin: 08/16/18 15:19 Dose: 4 mg Vital Signs - 8 hr 08/16/18 08/16/18 11:07 16:00 Temperature 97.9 F Pulse Rate 75 Respiratory 16 Rate Blood Pressure 126/70 (mmHg) O2 Sat by Pulse 93 93 Oximetry Oxygen Devices in Use Now: Nasal Cannula Appearance: 53 yo F in nAD, aAOx3 Eyes: No Scleral Icterus, PERRLA Ears/Nose/Mouth/Throat: NL Teeth, Lips, Gums, Mucous Membranes Moist Neck: NL Appearance and Movements; NL JVP, Trachea Midline Respiratory: Symmetrical Chest Expansion and Respiratory Effort, - - decreased breath sounds b/l no significant wheezing Cardiovascular: NL Sounds; No Murmurs; No JVD, RRR Abdominal: NL Sounds; No Tenderness; No Distention Lymphatic: No Cervical Adenopathy Extremities: No Edema, No Clubbing, Cyanosis Skin: No Rash or Ulcers, No Nodules or Sclerosis Neurological: Alert and Oriented x 3, NL Muscle Strength and Tone Result Diagrams: 08/12/18 05:01 08/12/18 05:01 Additional Lab and Data: Laboratory Tests 08/11/18 08/11/18 08/11/18 21:20 21:20 21:20 D-Dimer, Quantitative < 200 Lactic Acid 1.0 Calcium 9.3 Magnesium 1.8 L Alkaline Phosphatase 107 H C-Reactive Protein 93.73 H B-Natriuretic Peptide Total Protein 7.9 Influenza A (Rapid) Influenza B (Rapid) 08/11/18 08/12/18 21:20 00:40 D-Dimer, Quantitative Lactic Acid Calcium Magnesium Alkaline Phosphatase C-Reactive Protein B-Natriuretic Peptide 12 Total Protein Influenza A (Rapid) Negative Influenza B (Rapid) Negative Microbiology and Other Data: Microbiology 08/12/18 00:15 Influenza Types A,B Antigen - Final Nasal Specimen received for Influenza A/B Molecular testing Diagnostic Imaging: CXR:negative EKG Data: NSR, normal axis, T-wave flattening V3-V6 Assess/Plan/Problems-Billing Assessment: This is a 53 year old woman with history of asthma, presents with exacerbation and acute hypoxia. - Patient Problems (1) Asthma exacerbation Comment: - Continues with no appreciable improvement, although hypoxemia improving. will place on [facility] nebs - Consult with Dr. Victor appreciated, continue steroids at current dose, flutter valve added - Continue home ICS/LABA - Continue azithromycin daily, last dose today (2) Nausea & vomiting Comment: pt vomitted once today, but overall is improving, likely viral gastroenteritis; does not seem related to current respiratory issues - IVF discontinued, tolerating PO diet without issue (3) DVT prophylaxis Comment: - HSQ Status and Disposition: Inpatient. Anticipate DC to home tomorrow
[2018-08-16] MEDS: Azithromycin IV(*) 250 MG in NS 0.9% 250 ML* 250 ML IVPB SCH (21:53)
[2018-08-17] MEDS: methylPREDNISolone SOD 40 MG* 1 ML VIAL IV SCH ×2 (01:26→14:11)
[2018-08-17] MEDS: Albuterol/Ipratropium NEB.SOL* Albuterol 2.5 MG/Ipratropium 0.5 MG 3 ML INH SCH ×2 (02:52→08:23)
[2018-08-17 04:53] LABS: Hematocrit 36 % (33-41); Mean Corpuscular HGB Conc 33 g/dL (31-36); Mean Corpuscular Hemoglobin 29 pg (27-31); Mean Corpuscular Volume 87 fL (80-97); Mean Platelet Volume 7.1 fL (7.4-10.4); Platelet Count 347 10^3/uL (150-450); Red Blood Count 4.12 10^6 /uL (3.70-4.87); Red Cell Distribution Width 14 % (10.5-15); White Blood Count 12.7 10^3/uL (3.5-10.8)
[2018-08-17 05:06] LABS: BUN/Creatinine Ratio 24.1 (8-20); Calcium 8.9 mg/dL (8.6-10.3); EGFR African American 92.1 (>60); EGFR Non-African American 76.1 (>60); Potassium 3.9 mmol/L (3.5-5.0)
[2018-08-17 05:27] LABS: Immature Granulocytes 3 % (0-9); Lymphocytes % 15 %; Metamyelocytes % 1 % (0-2); Monocytes % 6 %; Myelocytes % 2 % (0-1); Neutrophil % 76 %; Nucleated Red Blood Cells/100 2 (0-0)
[2018-08-17] MEDS: Heparin VIAL(*) 5000 UNITS/ML VIAL (FIVE THOUSAND) SUBCUT SCH ×3 (05:42→22:06)
[2018-08-17] MEDS: Mometasone/Formoter 200/5 MDI INH SCH ×2 (08:24→22:04)
[2018-08-17] MEDS ORDERED: Albuterol/Ipratropium NEB.SOL* Albuterol 2.5 MG/Ipratropium 0.5 MG 3 ML INH PRN (08:26)
[2018-08-17] MEDS: Montelukast Sodium TAB* 10 MG PO SCH (10:23)
[2018-08-17] MEDS: Cetirizine* 10 MG TAB PO SCH (10:23)
--- NOTE | 2018-08-17 15:54 | PN ---
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 Past Medical History: Findings - asthma, hypothyroid *(untreated) anxiety, GERD ; PSH: LT knee arthroplasty, X2, RT rotator cuff repair Objective Active Medications: Albuterol (Ventolin 2.5 Mg/3 Ml Neb.Idamond*) 2.5 mg INH [id number] AWAKE PRN PRN Reason: SOB/WHEEZING Last Admin: 08/16/18 13:24 Dose: 2.5 mg Albuterol (Ventolin Hfa Inhaler*) 2 puff INH Q4H PRN PRN Reason: SOB/WHEEZING Albuterol/Ipratropium (Duoneb (Albuterol 2.5 Mg/Ipratropium 0.5 Mg)) 1 neb INH Q4H PRN PRN Reason: SOB/WHEEZING Calcium Carbonate (Tums*) 500 mg PO Q4H PRN PRN Reason: HEARTBURN Last Admin: 08/12/18 05:33 Dose: 500 mg Cetirizine HCl (Zyrtec*) 10 mg PO DAILY JADE; Protocol Last Admin: 08/17/18 10:23 Dose: 10 mg Guaifenesin/Dextromethorphan (Robitussin Dm*) 10 ml PO Q4H PRN PRN Reason: COUGH Last Admin: 08/12/18 17:20 Dose: 10 ml Heparin Sodium (Porcine) (Heparin Vial(*)) 5,000 units SUBCUT Q8HR JADE Last Admin: 08/17/18 14:11 Dose: 5,000 units Azithromycin 250 mg/ Sodium (Chloride) 250 mls @ 250 mls/hr IVPB Q24H JADE Last Admin: 08/16/18 21:53 Dose: 250 mls/hr Magnesium Hydroxide (Milk Of Magnesia Liq*) 30 ml PO Q6H PRN PRN Reason: CONSTIPATION Last Admin: 08/13/18 22:06 Dose: 30 ml Methylprednisolone Sodium Succinate (Solu-Medrol 40 Mg) 40 mg IV Q12H JADE Last Admin: 08/17/18 14:11 Dose: 40 mg Metoclopramide HCl (Reglan Iv*) 10 mg IV Q6H PRN PRN Reason: NAUSEA/VOMITING Last Admin: 08/13/18 06:28 Dose: 10 mg Mometasone Furoate/Formoterol Fumar (Dulera 200/5 Mdi*) 1 puff INH BID [facility]; Protocol Last Admin: 08/17/18 08:24 Dose: 1 puff Montelukast Sodium (Singulair Tab*) 10 mg PO DAILY [facility] Last Admin: 08/17/18 10:23 Dose: 10 mg Ondansetron HCl (Zofran Inj*) 4 mg IV Q4H PRN PRN Reason: NAUSEA/VOMITING Last Admin: 08/16/18 15:19 Dose: 4 mg Vital Signs - 8 hr 08/17/18 08/17/18 08/17/18 07:46 08:00 08:24 Temperature 98.1 F Pulse Rate 67 68 Respiratory 18 16 16 Rate Blood Pressure 123/70 (mmHg) O2 Sat by Pulse 93 98 Oximetry 08/17/18 08/17/18 08/17/18 08:31 11:14 15:25 Temperature 98.0 F 98.7 F Pulse Rate 94 78 Respiratory 16 18 Rate Blood Pressure 126/59 120/72 (mmHg) O2 Sat by Pulse 93 93 95 Oximetry Oxygen Devices in Use Now: None Eyes: No Scleral Icterus Neck: NL Appearance and Movements; NL JVP Respiratory: Symmetrical Chest Expansion and Respiratory Effort, Clear to Auscultation Cardiovascular: NL Sounds; No Murmurs; No JVD Skin: No Rash or Ulcers Neurological: Alert and Oriented x 3 Result Diagrams: 08/17/18 04:14 08/17/18 04:14 Additional Lab and Data: Laboratory Tests 08/11/18 08/11/18 08/11/18 21:20 21:20 21:20 D-Dimer, Quantitative < 200 Lactic Acid 1.0 Calcium 9.3 Magnesium 1.8 L Alkaline Phosphatase 107 H C-Reactive Protein 93.73 H B-Natriuretic Peptide Total Protein 7.9 Influenza A (Rapid) Influenza B (Rapid) 08/11/18 08/12/18 21:20 00:40 D-Dimer, Quantitative Lactic Acid Calcium Magnesium Alkaline Phosphatase C-Reactive Protein B-Natriuretic Peptide 12 Total Protein Influenza A (Rapid) Negative Influenza B (Rapid) Negative Microbiology and Other Data: Microbiology 08/12/18 00:15 Influenza Types A,B Antigen - Final Nasal Specimen received for Influenza A/B Molecular testing Diagnostic Imaging: CXR:negative EKG Data: NSR, normal axis, T-wave flattening V3-V6 Assess/Plan/Problems-Billing Assessment: This is a 53 year old woman with history of asthma, presents with exacerbation and acute hypoxia. - Patient Problems (1) Asthma exacerbation Current Visit: Yes Status: Acute Priority: High Code(s): J45.901 - UNSPECIFIED ASTHMA WITH (ACUTE) EXACERBATION SNOMED Code(s): 541292788 Comment: - hypoxemia improving. on JADE nebs - Consult with Dr. Victor appreciated, continue steroids at current dose, flutter valve added - Continue home ICS/LABA - Continue azithromycin daily (2) Nausea & vomiting Current Visit: Yes Status: Acute Code(s): R11.2 - NAUSEA WITH VOMITING, UNSPECIFIED SNOMED Code(s): 72854393 Comment: pt vomitted once yesterday, but overall is improving, likely viral gastroenteritis; does not seem related to current respiratory issues - IVF discontinued, tolerating PO diet without issue Status and Disposition: Inpatient. Anticipate DC to home tomorrow
[2018-08-17] MEDS: Azithromycin IV(*) 250 MG in NS 0.9% 250 ML* 250 ML IVPB SCH (22:04)
[2018-08-18] MEDS: methylPREDNISolone SOD 40 MG* 1 ML VIAL IV SCH ×2 (02:23→13:01)
[2018-08-18] MEDS: Calcium Carbonate CHEW TAB* 500 MG (TUMS) PO PRN ×2 (02:26→07:05)
[2018-08-18 04:56] LABS: ABS Basophils 0 10^3/ul (0-0.2); ABS Eosinophils 0 10^3/ul (0-0.6); ABS Lymphocytes 2.2 10^3/ul (1.0-4.8); ABS Monocytes 0.9 10^3/ul (0-0.8); ABS Neutrophils 12.5 10^3/ul (1.5-7.7); ABS Nucleated RBC 0 10^3/ul; Eosinophil % 0.1 %; Hematocrit 42 % (33-41); Hemoglobin 13.8 g/dL (12.0-16.0); Mean Corpuscular HGB Conc 33 g/dL (31-36); Mean Corpuscular Hemoglobin 29 pg (27-31); Mean Corpuscular Volume 87 fL (80-97); Mean Platelet Volume 7.2 fL (7.4-10.4); Nucleated Red Blood Cells % 0.1; Platelet Count 355 10^3/uL (150-450); Red Blood Count 4.79 10^6 /uL (3.70-4.87); Red Cell Distribution Width 14 % (10.5-15); White Blood Count 15.6 10^3/uL (3.5-10.8)
[2018-08-18 05:11] LABS: BUN/Creatinine Ratio 25.7 (8-20); Calcium 9.5 mg/dL (8.6-10.3); EGFR African American 99.3 (>60); EGFR Non-African American 82.1 (>60); Potassium 4.4 mmol/L (3.5-5.0)
[2018-08-18] MEDS: Heparin VIAL(*) 5000 UNITS/ML VIAL (FIVE THOUSAND) SUBCUT SCH ×2 (06:48→13:33)
[2018-08-18] MEDS: Ondansetron INJ* 2 MG/ML VIAL IV PRN (07:05)
[2018-08-18] MEDS: Mometasone/Formoter 200/5 MDI INH SCH (08:16)
[2018-08-18] MEDS: Cetirizine* 10 MG TAB PO SCH (08:17)
[2018-08-18] MEDS: Montelukast Sodium TAB* 10 MG PO SCH (08:17)
[2018-08-18 11:42] VITALS: BP 118/68
--- NOTE | 2018-08-18 22:35 | DS ---
DISCHARGE SUMMARY: DATE OF ADMISSION: 08/13/18 DATE OF DISCHARGE: 08/18/18 PRIMARY DIAGNOSIS: Severe asthma exacerbation. HOSPITAL COURSE: A 53-year-old female with history of asthma for 10 years, which tends to be seasonal, came into the hospital with wheezing, dyspnea for 2 weeks, went to see her primary care doctor initially, was started on her inhalers and did not feel better. The patient initially went to the urgent care center and was referred to the ER due to hypoxia. Please refer to the initial history and physical for full details of presentation. The patient's chest x-ray did not show significant pneumonia. The patient was placed on supplemental oxygen and IV steroids, was also continued on albuterol nebulizer on outpatient ICS/LABA. The patient was also placed on azithromycin to treat for bacterial bronchitis. The patient's influenza screen was noted to be negative. The patient gradually improved with above measures and at this time is being discharged home on a Medrol Dosepak and Z-Remi to be completed. The patient has been ambulating and doing well and reports that she feels 95% close to baseline currently. LABORATORY DATA: Labs noted to be stable at the time of discharge. WBC 15.6, elevated due to steroids; hemoglobin 13.8; hematocrit 42; platelets noted to be 355. Sodium 135, potassium 4.4, chloride 99, CO2 27, BUN 19, creatinine 0.94, glucose noted to be 131. PHYSICAL EXAMINATION: HEENT: NCAT. Heart: S1, S2 present. Regular at the time of exam. Lungs: Decreased breath sounds bilaterally, but clear to auscultation. Abdomen: Soft. Extremities: No edema. Neuro: Alert and oriented. MEDICATION LIST: 1. Singulair 10 mg p.o. daily. 2. Cetirizine 10 mg p.o. daily. 3. Symbicort 1 inhalation b.i.d. 4. Albuterol inhaler as needed. 5. Medrol Dosepak. 6. Z-Remi/azithromycin. CONDITION/DISPOSITION: Stable at time of discharge. The patient is being discharged home. The patient is to follow up with her PCP in 1 to 2 weeks. TIME SPENT: Total time spent on discharge is equal to 40 minutes. [id number] #: [id number] [facility]
== END 2018-08-18 14:40 | disposition home or self-care (01) | DRG 141 ==
LOC: ED 20:39 → SSU 22:47 → OBSVTOIN 08-13 09:30 → INTOOBSV 08-13 09:30 → SSU 08-15 12:29
PROVIDERS: ADMIT Internal Medicine; ATTEND Internal Medicine
DX: J45.901 Unspecified asthma with (acute) exacerbation (principal); E03.9 Hypothyroidism, unspecified; K21.9 Gastro-esophageal reflux disease without esophagitis; F41.9 Anxiety disorder, unspecified; F32.9 Major depressive disorder, single episode, unspecified; G43.909 Migraine, unspecified, not intractable, without status migrainosus; Z96.652 Presence of left artificial knee joint; J40 Bronchitis, not specified as acute or chronic; M17.11 Unilateral primary osteoarthritis, right knee; R09.02 Hypoxemia; R11.2 Nausea with vomiting, unspecified; Z82.49 Family history of ischemic heart disease and other diseases of the circulatory system; Z88.1 Allergy status to other antibiotic agents; Z91.5 Personal history of self-harm; Z82.3 Family history of stroke; Z82.5 Family history of asthma and other chronic lower respiratory diseases; Z23 Encounter for immunization; Z79.51 Long term (current) use of inhaled steroids
CPT/HCPCS: 36415; 80048; 80053; 83605; 83735; 83880; 84443; 84484; 85025; 85379; 86140; 87040; 93005; 94640; 99285; A9270-GY; G0378; J0456; J1644; J2405; J2765; J2920; J2930; J3475

== ENCOUNTER 2021-11-08 10:02 | Observation (INO) ==
[~2021-11-08 10:02] MED LIST changes: +Buffered Lidocaine 1% SYRIN 1 ml INTRADERM ONE; -Famotidine IV* 10 MG/ML 2 ML (20 mg) IV ONE; +HYDROmorphone 1 MG/1 ML SYRINGE IV PRN; +Lactated Ringers 1000 ml BAG 1,000 ML IV SCH; +Naloxone 0.4 mg VIAL 0.4 mg/ml 1 ml VIAL IV PRN; +Prochlorperazine 5 mg/ml 2 ml VIAL (10 mg) IV PRN
[2021-11-08] MEDS ORDERED: ceFAZolin 2 GM PREMIX 2 GM/50 ML BAG ONE (10:54)
[2021-11-08] MEDS ORDERED: fentaNYL 100 mcg/2 ml 50 MCG/ML VIAL ONE (12:16)
[2021-11-08] MEDS ORDERED: Midazolam 2 mg/2 ml VIAL 1 mg/ml 2 ml VIAL (2 mg) ONE (12:17)
[2021-11-08] MEDS ORDERED: ROPIVACAINE 5 MG/ML 30 ML BTL (0.5%) ONE (12:20)
[2021-11-08] MEDS ORDERED: Ondansetron 4 mg VIAL 2 MG/ML 2 ml VIAL ONE (13:00)
[2021-11-08] MEDS ORDERED: Dexamethasone IV 4 MG/ML VIAL 1 ml VIAL ONE (13:00)
[2021-11-08] MEDS ORDERED: Bupivacaine 0.25% SDV 30 ML ONE (13:00)
[2021-11-08] MEDS ORDERED: Phenylephrine IV 10 MG/ML 1 ml VIAL ONE (13:00)
[2021-11-08] MEDS ORDERED: Lidocaine 2% PF 5 ML VIAL ONE (13:01)
[2021-11-08] MEDS ORDERED: Propofol 10 mg/ml 100 ML BTL 100 ML ONE (13:06)
[2021-11-08] MEDS ORDERED: Glycopyrrolate IV 0.2 MG/ML 1 ML VIAL ONE ×2 (13:39→13:41)
[2021-11-08] MEDS ORDERED: Magnesium Hydroxide LIQ 30 ML UDC PO PRN (14:53)
[2021-11-08] MEDS ORDERED: Morphine 2 MG/ML SYRINGE IV PRN (14:53)
[2021-11-08] MEDS ORDERED: Ondansetron 4 mg VIAL 2 MG/ML 2 ml VIAL IV PRN (14:53)
[2021-11-08] MEDS ORDERED: Ondansetron ODT 4 mg TAB 4 MG TAB PO PRN (14:53)
[2021-11-08] MEDS ORDERED: Lactulose 30 ml UDC PO PRN (14:53)
[2021-11-08] MEDS ORDERED: Albuterol HFA INHALER 8 gm MDI INH PRN (15:01)
[2021-11-08] MEDS: Lactated Ringers 1000 ml BAG 1,000 ML IV SCH (17:34)
[2021-11-08] MEDS: Mometasone/Formoter 200/5 MDI INH SCH (19:42)
[2021-11-08] MEDS: ceFAZolin 1 GM ADVAN 1 GM in NS 0.9% 50 ML 50 ML IVPB SCH (22:44)
[2021-11-08] MEDS: Magnesium Hydroxide LIQ 30 ML UDC PO SCH (22:45)
[2021-11-09] MEDS: ceFAZolin 1 GM ADVAN 1 GM in NS 0.9% 50 ML 50 ML IVPB SCH ×2 (05:04→13:42)
[2021-11-09] MEDS: Lactated Ringers 1000 ml BAG 1,000 ML IV SCH ×2 (06:09→12:00)
[2021-11-09 07:31] LABS: Hematocrit 30 % (35-47); Hemoglobin 9.7 g/dL (12.0-16.0); Mean Platelet Volume 6.7 fL (7.4-10.4); Platelet Count 307 10^3/uL (150-450)
[2021-11-09 08:20] LABS: Calcium 9.2 mg/dL (8.6-10.3); Potassium 4.2 mmol/L (3.5-5.0)
[2021-11-09] MEDS: Mometasone/Formoter 200/5 MDI INH SCH (08:50)
[2021-11-09] MEDS ORDERED: Vitamin THERAPEUTIC TAB PO SCH (09:00)
[2021-11-09] MEDS ORDERED: Fluticasone NASAL SPRAY 50MCG 16 gm SPRAY BTL INTRANASAL SCH (09:00)
[2021-11-09] MEDS: Magnesium Hydroxide LIQ 30 ML UDC PO SCH (09:33)
[2021-11-09] MEDS ORDERED: NS 0.9% 1000 ml BAG 1,000 ML IV ONE (10:34)
[2021-11-09 15:39] VITALS: BP 118/56
== END 2021-11-09 13:45 | disposition home or self-care (01) ==
LOC: OR 10:02 → SSU 10:02 → EDSTATUS 12:15
PROVIDERS: ADMIT Orthopaedic Surgery Adult Reconstructive Orthopaedic Surgery; ATTEND Orthopaedic Surgery Adult Reconstructive Orthopaedic Surgery